=== PATIENT | female | born 1950 | race Caucasian/White ===

== ENCOUNTER → 2022-11-02 07:12 | Outpatient (CLI) | payer MEDICARE, OTHER, SELFPAY ==
[2022-11-02 07:46] LABS: Add Manual Diff / Slide Review NO; Basophils Absolute Auto 0 /uL (0-100); Basophils Percent Auto 0.8 % (0-2); Eosinophils Absolute Auto 200 /uL (0-450); Eosinophils Percent Auto 3.3 % (2-4); Hemoglobin 11.3 g/dL (12.0-16.0); Lymphocytes Absolute Auto 3000 /uL (1100-4500); Lymphocytes Percent Auto 53.3 % (25-40); Mean Corpuscular HGB Conc 34.1 % (30-36); Mean Corpuscular Hemoglobin 31.4 PG (26-34); Mean Corpuscular Volume 92.1 fL (80-100); Monocytes Absolute Auto 400 /uL (0-900); Monocytes Percent Auto 7.3 % (3-14); Neutrophils Absolute Auto 2000 /uL (1500-7000); Neutrophils Percent Auto 35.3 % (50-75); Platelet Count 215 X10^3/uL (150-400); Red Blood Cell Count 3.58 X10^6/uL (4.0-5.2); Red Cell Distribution Width 13.6 % (11.6-14.8); White Blood Cell Count 5.6 X10^3/uL (4.5-11.0)
[2022-11-02 08:09] LABS: Alanine Aminotransferase 23 IU/L (<35); Albumin 4.3 g/dL (3.5-5.0); Albumin Globulin Ratio 1.7 (1.0-2.8); Alkaline Phosphatase 50 U/L (38-126); Aspartate Aminotransferase 23 IU/L (14-36); BUN Creatinine Ratio 17.4 (6-22); Bilirubin Total 0.3 mg/dL (0.2-1.3); Blood Urea Nitrogen 20 mg/dL (7-17); Calcium 9.2 mg/dL (8.4-10.2); Carbon Dioxide 25 mmol/L (22-32); Chloride 99 mmol/L (98-107); Cholesterol 208 mg/dL (140-199); Estimated Glomerular Filt Rate 50 mL/min (>60); Globulin 2.6 g/dL (1.7-4.1); Glucose 95 mg/dL (80-110); HDL Cholesterol 62 mg/dL (40-60); HEMOLYSIS < 15 (0-50); LDL Cholesterol Calculated 100 mg/dL (<100); Phosphorous 3.5 mg/dL (2.8-4.1); Potassium 4.3 mmol/L (3.4-5.1); Sodium 133 mmol/L (137-145); Total Protein 6.9 g/dL (6.3-8.2); Triglycerides 232 mg/dL (35-150); Uric Acid 5.9 mg/dL (2.5-6.2)
[2022-11-02 08:15] LABS: Vitamin D 25 Hydroxy (D3) 67.2 ng/mL (30.0-100.0)
[2022-11-02 16:12] LABS: Protein (Total) Urine Random 12 mg/dL (0-12); Protein Creatinine Ratio Urine 0.35 GRAM/24H
[2022-11-04 07:45] LABS: Parathyroid Hormone Int 70 pg/mL (15-65)
== END ==
PROVIDERS: Referring Provider Internal Medicine Nephrology; Visit Provider Internal Medicine Nephrology
DX: N18.32 Chronic kidney disease, stage 3b (principal); I10 Essential (primary) hypertension; E55.9 Vitamin D deficiency, unspecified; R73.9 Hyperglycemia, unspecified; E78.5 Hyperlipidemia, unspecified
CPT/HCPCS: 36415; 80053; 80061; 82306; 82570; 83970; 84100; 84156; 84550; 85025

== ENCOUNTER → 2023-10-24 09:45 | Outpatient (CLI) | payer MEDICARE, OTHER, SELFPAY ==
[2023-10-24 11:33] LABS: Cholesterol 224 mg/dL (140-199); HDL Cholesterol 56 mg/dL (40-60); LDL Cholesterol Calculated 94 mg/dL (<100); Triglycerides 371 mg/dL (35-150)
== END ==
LOC: LAB 09:47
PROVIDERS: PCP Nurse Practitioner Family; Referring Provider Nurse Practitioner Family; Visit Provider Nurse Practitioner Family
DX: E78.5 Hyperlipidemia, unspecified (principal)
CPT/HCPCS: 36415; 80061

== ENCOUNTER → 2024-04-08 12:13 | Outpatient (CLI) | payer MEDICARE, OTHER, SELFPAY ==
[2024-04-08 12:57] LABS: Add Manual Diff / Slide Review NO; Basophils Absolute Auto 0 /uL (0-100); Basophils Percent Auto 0.4 % (0-2); Eosinophils Absolute Auto 200 /uL (0-450); Eosinophils Percent Auto 2.8 % (2-4); Hemoglobin 12.3 g/dL (12.0-16.0); Lymphocytes Absolute Auto 2200 /uL (1100-4500); Lymphocytes Percent Auto 40.4 % (25-40); Mean Corpuscular HGB Conc 33.3 % (30-36); Mean Corpuscular Hemoglobin 30.4 PG (26-34); Mean Corpuscular Volume 91.2 fL (80-100); Monocytes Absolute Auto 400 /uL (0-900); Monocytes Percent Auto 7.8 % (3-14); Neutrophils Absolute Auto 2700 /uL (1500-7000); Neutrophils Percent Auto 48.6 % (50-75); Platelet Count 244 X10^3/uL (150-400); Red Blood Cell Count 4.06 X10^6/uL (4.0-5.2); Red Cell Distribution Width 13.8 % (11.6-14.8); White Blood Cell Count 5.6 X10^3/uL (4.5-11.0)
[2024-04-08 13:10] LABS: Hemoglobin A1C% w Est Avg Glu 5.5 % (4.0-6.0)
[2024-04-08 13:16] LABS: Alanine Aminotransferase 20 IU/L (<35); Albumin 4.7 g/dL (3.5-5.0); Albumin Globulin Ratio 1.7 (1.0-2.8); Alkaline Phosphatase 56 U/L (38-126); Aspartate Aminotransferase 25 IU/L (14-36); BUN Creatinine Ratio 22.3 (6-22); Bilirubin Total 0.6 mg/dL (0.2-1.3); Blood Urea Nitrogen 27 mg/dL (7-17); Calcium 9.7 mg/dL (8.4-10.2); Carbon Dioxide 23 mmol/L (22-32); Chloride 102 mmol/L (98-107); Estimated Glomerular Filt Rate 47 mL/min (>60); Globulin 2.8 g/dL (1.7-4.1); Glucose 89 mg/dL (80-110); HEMOLYSIS < 15 (0-50); Phosphorous 4.1 mg/dL (2.8-4.1); Potassium 4.7 mmol/L (3.4-5.1); Sodium 134 mmol/L (137-145); Total Protein 7.5 g/dL (6.3-8.2); Uric Acid 6.4 mg/dL (2.5-6.2)
[2024-04-08 15:42] LABS: Creatinine Urine Random 23.02 mg/dL; Protein (Total) Urine Random 12 mg/dL (0-12); Protein Creatinine Ratio Urine 0.52 GRAM/24H
[2024-04-08 15:54] LABS: Vitamin D 25 Hydroxy (D3) 61.4 ng/mL (30.0-100.0)
[2024-04-10 11:42] LABS: Parathyroid Hormone Int 44 pg/mL (15-65)
== END ==
PROVIDERS: PCP Nurse Practitioner Family; Referring Provider Internal Medicine Nephrology; Visit Provider Internal Medicine Nephrology
DX: E55.9 Vitamin D deficiency, unspecified (principal); R73.9 Hyperglycemia, unspecified; E78.5 Hyperlipidemia, unspecified; N18.32 Chronic kidney disease, stage 3b; I12.9 Hypertensive chronic kidney disease with stage 1 through stage 4 chronic kidney disease, or unspecified chronic kidney disease
CPT/HCPCS: 36415; 80053; 82306; 82570; 83036; 83970; 84100; 84156; 84550; 85025

== ENCOUNTER → 2024-05-13 07:54 | Outpatient (CLI) | payer MEDICARE, OTHER, SELFPAY ==
[2024-05-13 11:12] LABS: Cholesterol 195 mg/dL (140-199); HDL Cholesterol 59 mg/dL (40-60); LDL Cholesterol Calculated 91 mg/dL (<100); Triglycerides 223 mg/dL (35-150)
== END ==
PROVIDERS: PCP Nurse Practitioner Family; Referring Provider Nurse Practitioner Family; Visit Provider Nurse Practitioner Family
DX: E78.5 Hyperlipidemia, unspecified (principal)
CPT/HCPCS: 36415; 80061

== ENCOUNTER → 2024-05-22 07:36 | Outpatient (CLI) | payer MEDICARE, OTHER, SELFPAY ==
--- NOTE | 2024-05-22 | DI.MG.S_ITS ---
UNILATERAL RIGHT DIGITAL SCREENING MAMMOGRAM 3D/2D WITH CAD: 05/22/2024 CLINICAL: Routine screening. Personal history of left breast cancer. Comparison is made to exams dated: 05/16/2023 mammogram, 04/11/2022 mammogram, 03/24/2021 mammogram, 03/08/2020 mammogram, 02/24/2019 mammogram, and 02/11/2018 mammogram - [facility]. The breasts are almost entirely fatty (category a/<25% glandular tissue). Current study was also evaluated with a Computer Aided Detection (CAD) system. There are benign post operative findings in the right breast. No significant masses, calcifications, or other findings are seen in the breast. There has been no significant interval change. IMPRESSION: BENIGN There is no mammographic evidence of malignancy. A 1 year screening mammogram is recommended. This exam was interpreted at Station ID: [id number]. NOTE: For mammograms, a report in lay terms will be sent to the patient. Approximately 15% of breast malignancies will not be visualized mammographically. In the management of a palpable breast mass, a negative mammogram must not discourage biopsy of a clinically suspicious lesion. Electronically Signed By: Rosalia Lopez M.D., Ph.D. eduardo/[email or web address]:05/25/2024 04:56:09 letter sent: Normal Exam ACR BI-RADS Category 2: Benign
== END ==
PROVIDERS: PCP Nurse Practitioner Family; Referring Provider Nurse Practitioner Family; Visit Provider Nurse Practitioner Family
DX: Z12.31 Encounter for screening mammogram for malignant neoplasm of breast (principal); Z85.3 Personal history of malignant neoplasm of breast; R92.313 Mammographic fatty tissue density, bilateral breasts
CPT/HCPCS: 77063; 77067

== ENCOUNTER 2024-07-28 07:30 | Outpatient (RCR) | payer MEDICARE, OTHER, SELFPAY ==
--- NOTE | 2024-06-15 18:27 | PT.OIE ---
Current Diagnoses Plantar fascial fibromatosis (06/15/24) Past Medical History (Last Updated 05/15/24 @ 14:01 [facility] Chronic kidney disease (CKD) History of breast cancer History of gastric ulcer Hyperlipidemia Hypertension Visit Care Team Role Provider Type RAYSHAWN Mtz Attending Provider Advanced Cuff Setter Family Provider Primary Care Provider Referring Provider Specialty: Family Practice Address: [address] [place] [address], [id number] Phone: Fax: Email: [email or web address] Physical Therapy Initial Evaluation PT-OP-A Visit Information Start: 06/04/24 16:12 Freq: Status: Active Protocol: Document 06/15/24 07:33 LRN (Rec: 06/15/24 08:51 LRN [id number]) Out-Patient Physical Therapy Visit Information Visit Information Visit Type Initial Evaluation Visit Start Time 07:35 Visit Stop Time 08:21 Visit Number 1 Evaluation Information Evaluation Date 06/15/24 Precautions Precautions Hx of breast cancer, jt replacements: R shoulder & hip . Cortisone injection in medial R heel - 06/10/24, R ankle sprain pre-covid. PT-OP-B Current Condition Start: 06/04/24 16:12 Freq: Status: Active Protocol: Document 06/15/24 07:33 LRN (Rec: 06/15/24 08:51 LRN [id number]) Current Condition History of Current Condition Onset Date 1 month ago Current Complaints Hasn't returned to walking since cortisone shot, medial R heel irritation History of Current Condition Pt reports in mid April 2024, R foot started bothering her. After walking on heeled shoe after 6 hrs the heel and top of foot starting hurting. [place] and barely walk afterwards. Hasn't been walking. Now able to walk 45' to shop (after cortisone injection). Was told with the R AIME one leg was longer but corrected it. Prior Treatments and Tests Cortisone injection last sat. Developmental History Developmental History Moved to [place] 2 yrs ago. 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 PMH: R TSA (ball & angela) 2011, L mastectomy (2017), R breast reduction and L reconstruction 2018, carpal tunnel, Treatment Goals Patient/Caregiver Goals Pt goal Get back to walking for exercise ([employer] and [employer]). WAnts to go skiing in end of Jun. 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 PT-OP-C Subjective Start: 06/04/24 16:12 Freq: Status: Active Protocol: Document 06/15/24 07:33 LRN (Rec: 06/15/24 08:51 LRN [id number]) Patient Questionnaires Lower Extremity Functional Scale LEFS Score 53 LEFS Impairment 20 to 39% Impaired (Score 48- 62) OP-PT Pain Assessment Pain Assessment Grid Paper Pain Assessment Grid Completed Yes Location R foot Pain Location Details R heel Intensity 4 Scale Used Numeric (0 - 10) Description Aching Description- Other Annoying Frequency When on feet a lot PT-OP-G Mobility & Gait Start: 06/04/24 16:12 Freq: Status: Active Protocol: Document 06/15/24 07:33 LRN (Rec: 06/15/24 08:51 LRN [id number]) OP Gait Assessment Gait Gait Assistance Required: Independent Comments Gait Comments Heavy landing on L side, flat foot on toe off. PT-OP-H Neuro Start: 06/04/24 16:12 Freq: Status: Active Protocol: Document 06/15/24 07:33 LRN (Rec: 06/15/24 08:51 LRN [id number]) Sensation Evaluation Gross Sensation Gross Sensation WNL PT-OP-J Posture/Palpation/Skin Start: 06/04/24 16:12 Freq: Status: Active Protocol: Document 06/15/24 07:33 LRN (Rec: 06/15/24 08:51 LRN [id number]) Posture Evaluation Position Standing Hip Posture (L) Externally Rotated,(R) Externally Rotated Knee Posture (L) Genu Valgus Foot Arch (R) Medium Arch,(L) No Arch Comments Posture Comments Head shifted R, Bunion R. Dowagers hump, flat Low back, very mild C-curvew/apex on L1- ,L2. Mild valgus R heel, mod valgus L heel. Palpation Assessment Location R foot Palpation Location Talocalcanealnavicular, cuneonavicular jt Palpation Details Dec'd mob: Talocalcanealnavicular- anterior and cuneonavicular - PA. EV of calcaneous. PT-OP-K Range of Motion Start: 06/04/24 16:12 Freq: Status: Active Protocol: Document 06/15/24 07:33 LRN (Rec: 06/15/24 08:51 LRN [id number]) Ankle and Foot Goniometric Range of Motion Ankle and Foot Right Active Testing Position Supine Comments AROMDF-PF 7-44, EV-IV 20-42 Left Active Testing Position Supine Comments Decr'd ankle DF. AROM: DF-PF 4-70, EV-IV 24-44 PT-OP-M Strength Start: 06/04/24 16:12 Freq: Status: Active Protocol: Document 06/15/24 07:33 LRN (Rec: 06/15/24 08:51 LRN [id number]) Knee Strength Knee Manual Muscle Testing Right Comments Strength is 5/5 Left Comments Strength is 5/5 Ankle/Foot Strength Ankle and Foot Manual Muscle Testing Right Comments Strength is 5/5 Left Comments Strength is 5/5 PT-OP-Q Treatments Start: 06/04/24 16:12 Freq: Status: Active Protocol: Document 06/15/24 07:33 LRN (Rec: 06/15/24 08:51 LRN [id number]) Self-Care/Home Management Treatment Education Other Education Discussed results of evaluation, goals, treatment, and plan of care (POC) with pt , attendance/cx/dns policy; pt agreeable to evaluation, goals, treatment, attendance/ cx/dns policy and POC. Activities Self-Care/Home Management Activities Issued & reviewed HEP: Short foot flexion strengthening, standing gastroc & soleus stretch. PT-OP-T Assessment and Plan Start: 06/04/24 16:12 Freq: Status: Active Protocol: Document 06/15/24 07:33 LRN (Rec: 06/15/24 08:51 LRN [id number]) Physical Therapy Assessment Rehab Potential Rehabilitation Potential Good Evaluation Complexity Number of Personal Factors/Comorbidities 3 or More Number of Body Systems Impaired 1-2 Clinical Presentation at Evaluation Evolving Impairments Impairments Activity Tolerance,Balance, Gait,Pain,ROM,Soft Tissue Mobility,Strength,Transfers Goals Three Impairment Decreased R ankle ROM and jt mobility Short Term Goal (STG) Pt will demonstrate normalized mobility of R Talocalcanealnavicular ( anterior mob) and cuneonavicular (PA mob), and calcaneal EV. 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 LTG Duration 08/13/24 Two Impairment Decreased walking tolerance Short Term Goal (STG) Pt will be able to tolerate gait on stairs and single leg balance exer on the R foot. STG Duration 07/17/24 Group Home Goal (LTG) Pt will be able to get back to walking for exercise on the double[employer]ist or [employer] . LTG Duration 08/13/24 One Impairment Pt lacks appropropriate self care HEP. Short Term Goal (STG) Pt will be started on program to work towards skiing by end jun, to include: education in different home modalities for pain management (ice, heat , elevation, nighttime splint) . STG Duration 07/17/24 Group Home Goal (LTG) Pt will be educated in a self care HEP of R ankle ROM & strengthening, and balance ex' s. LTG Duration 08/13/24 Assessment Summary Assessment Pt is a 74 yo female who presents with R heel pain from resolving plantar fasciitis after cortisone injection. Pt is having 4/10 heel pain with walking and discomfort with palpation in referred area for plantar fascial pain. The pt demonstrates postural changes in the L LE that may be creating a dysfunctional gait, putting extra stress on her R LE. Her R ankle and joint mobility is limited with DF, IV, EV. The pt will benefit from skilled physical therapy to improve her R ankle mobility, be educated in footwear for plantar support bilaterally, improve gait and return her to prior level of exercise walking tolerance, manual therapy to improve soft tissue & jt mobility and education in HEP & use of modalities for pain management . Physical Therapy Plan Frequency and Duration Frequency of Treatment 2x/Week Duration of treatment (weeks) 8 Plan of Care Start Date 06/15/24 Plan of Care End Date 08/13/24 Therapeutic Interventions Therapeutic Interventions Balance Training,Gait Training ,Home Exercise Program,Joint Mobilizations,Manual Therapy, Neuromuscular Re-education, Self-Care/Home Management,Soft Tissue Mobilization,Taping, Therapeutic Activities, Therapeutic Exercises Modalities Cold Pack/Ice Massage, Ultrasound Next Visit Focus/Plan Next Note Type Treatment Note Next Visit Plan Plantar fasciitis rehab post cortisone injection. Next: Assess SLS & R ankle PROM and review issued HEP. Start R ankle/toes ROM, foot long and short foot flexor & knee strengthening (check knee ROM), gait/stair/transfer/ balance training, manual therapy (STM-plantar fascia/ JMT-ankle), Pt Education (HEP, Edema and pain mgmt).
--- NOTE | 2024-06-15 18:28 | PT.OPPOC ---
Physical, Occupational & Speech Therapy At [facility] Current Diagnoses Plantar fascial fibromatosis (06/15/24) Visit Care Team Role Provider Type RAYSHAWN Mtz Attending Provider Advanced Shuttleless Loom Weaver Family Provider Primary Care Provider Referring Provider Specialty: Family Practice Address: [address] [place] [address], [address] Phone: Fax: Email: [email or web address] Plan Of Care PT-OP-B Current Condition Start: 06/04/24 16:12 Freq: Status: Active Protocol: Document 06/15/24 07:33 LRN (Rec: 06/15/24 08:51 LRN [id number]) Current Condition History of Current Condition Onset Date 1 month ago Current Complaints Hasn't returned to walking since cortisone shot, medial R heel irritation History of Current Condition Pt reports in mid April 2024, R foot started bothering her. After walking on heeled shoe after 6 hrs the heel and top of foot starting hurting. She did her normal walk back from doing the [place] trail and barely walk afterwards. Hasn't been walking. Now able to walk 45' to shop (after cortisone injection). Was told with the R AIME one leg was longer but corrected it. Prior Treatments and Tests Cortisone injection last sat. Developmental History Developmental History Moved to [place] 2 yrs ago. 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 PMH: R TSA (ball & angela) 2011, L mastectomy (2017), R breast reduction and L reconstruction 2018, carpal tunnel, Treatment Goals Patient/Caregiver Goals Pt goal Get back to walking for exercise ([employer] [place] and [employer]). WAnts to go skiing in end of Jun. 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 PT-OP-T Assessment and Plan Start: 06/04/24 16:12 Freq: Status: Active Protocol: Document 06/15/24 07:33 LRN (Rec: 06/15/24 08:51 LRN [id number]) Physical Therapy Assessment Rehab Potential Rehabilitation Potential Good Evaluation Complexity Number of Personal Factors/Comorbidities 3 or More Number of Body Systems Impaired 1-2 Clinical Presentation at Evaluation Evolving Impairments Impairments Activity Tolerance,Balance, Gait,Pain,ROM,Soft Tissue Mobility,Strength,Transfers Goals Three Impairment Decreased R ankle ROM and jt mobility Short Term Goal (STG) Pt will demonstrate normalized mobility of R Talocalcanealnavicular ( anterior mob) and cuneonavicular (PA mob), and calcaneal EV. STG Duration 07/17/24 Halfway Goal (LTG) Pt will demonstarted improved R ankle mobility for DF, EV, IV. LTG Duration 08/13/24 Two Impairment Decreased walking tolerance Short Term Goal (STG) Pt will be able to tolerate gait on stairs and single leg balance exer on the R foot. STG Duration 07/17/24 Paper Machine Back Tender Goal (LTG) Pt will be able to get back to walking for exercise on the [employer] or [employer] [place] . LTG Duration 08/13/24 One Impairment Pt lacks appropropriate self care HEP. Short Term Goal (STG) Pt will be started on program to work towards skiing by end of Jun, to include: education in different home modalities for pain management (ice, heat , elevation, nighttime splint) . STG Duration 07/17/24 Paper Machine Back Tender Goal (LTG) Pt will be educated in a self care HEP of R ankle ROM & strengthening, and balance ex' s. LTG Duration 08/13/24 Assessment Summary Assessment Pt is a 74 yo female who presents with R heel pain from resolving plantar fasciitis after cortisone injection. Pt is having 4/10 heel pain with walking and discomfort with palpation in referred area for plantar fascial pain. The pt demonstrates postural changes in the L LE that may be creating a dysfunctional gait, putting extra stress on her R LE. Her R ankle and joint mobility is limited with DF, IV, EV. The pt will benefit from skilled physical therapy to improve her R ankle mobility, be educated in footwear for plantar support bilaterally, improve gait and return her to prior level of exercise walking tolerance, manual therapy to improve soft tissue & jt mobility and education in HEP & use of modalities for pain management . Physical Therapy Plan Frequency and Duration Frequency of Treatment 2x/Week Duration of treatment (weeks) 8 Plan of Care Start Date 06/15/24 Plan of Care End Date 08/13/24 Therapeutic Interventions Therapeutic Interventions Balance Training,Gait Training ,Home Exercise Program,Joint Mobilizations,Manual Therapy, Neuromuscular Re-education, Self-Care/Home Management,Soft Tissue Mobilization,Taping, Therapeutic Activities, Therapeutic Exercises Modalities Cold Pack/Ice Massage, Ultrasound Next Visit Focus/Plan Next Note Type Treatment Note Next Visit Plan Plantar fasciitis rehab post cortisone injection. Next: Assess SLS & R ankle PROM and review issued HEP. Start R ankle/toes ROM, foot long and short foot flexor & knee strengthening (check knee ROM), gait/stair/transfer/ balance training, manual therapy (STM-plantar fascia/ JMT-ankle), Pt Education (HEP, Edema and pain mgmt). Plan of Care Dates Plan of Care Start Date 06/15/24 Plan of Care End Date 08/13/24 Electronically Signed by: Hazel Ludwig, PT 06/16/24 [id number] If you are in agreement with this Plan of Care, please return a signed and dated copy. I have reviewed this Plan of Care and certify that the skilled therapy services above are required to meet the patient?s needs. Physician Signature Date Printed Name and Credentials Clinical Instructor Signature Printed Name and Credentials
--- NOTE | 2024-06-18 17:04 | PT.OTN ---
Current Diagnoses Plantar fascial fibromatosis (06/18/24) Physical Therapy Treatment Note PT-OP-A Visit Information Start: 06/04/24 16:12 Freq: Status: Active Protocol: Document 06/18/24 13:52 LRN (Rec: 06/18/24 14:37 LRN [id number]) Out-Patient Physical Therapy Visit Information Visit Information Visit Type Treatment Note Visit Start Time 13:52 Visit Stop Time 14:32 Visit Number 2 Evaluation Information Evaluation Date 06/15/24 Precautions Precautions Hx of breast cancer, jt replacements: R shoulder & hip . Cortisone injection in medial R heel - 06/10/24, R ankle sprain pre-covid. PT-OP-B Current Condition Start: 06/04/24 16:12 Freq: Status: Active Protocol: Document 06/15/24 07:33 LRN (Rec: 06/15/24 08:51 LRN [id number]) Current Condition History of Current Condition Onset Date 1 month ago Current Complaints Hasn't returned to walking since cortisone shot, medial R heel irritation History of Current Condition Pt reports in mid April 2024, R foot started bothering her. After walking on heeled shoe after 6 hrs the heel and top of foot starting hurting. She did her normal walk back from doing the [employer] trail and barely walk afterwards. Hasn't been walking. Now able to walk 45' to shop (after cortisone injection). Was told with the R AIME one leg was longer but corrected it. Prior Treatments and Tests Cortisone injection last sat. Developmental History Developmental History Moved to [place] 2 yrs ago. 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 PMH: R TSA (ball & angela) 2011, L mastectomy (2017), R breast reduction and L reconstruction 2018, carpal tunnel, Treatment Goals Patient/Caregiver Goals Pt goal Get back to walking for exercise ([employer] and [email or web address] [place]). WAnts to go skiing in end of Jun. 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 PT-OP-C Subjective Start: 06/04/24 16:12 Freq: Status: Active Protocol: Document 06/18/24 13:52 LRN (Rec: 06/18/24 14:37 LRN [id number]) OP-PT Subjective Patient Comments Patient Comments States Dr. Ana Mercado gave her a cortisone injection and would like to stay informed by PT to help her decide if another injection is needed. States she hasn't been doing much. PT-OP-G Mobility & Gait Start: 06/04/24 16:12 Freq: Status: Active Protocol: Document 06/15/24 07:33 LRN (Rec: 06/15/24 08:51 LRN [id number]) OP Gait Assessment Gait Gait Assistance Required: Independent Comments Gait Comments Heavy landing on L side, flat foot on toe off. PT-OP-H Neuro Start: 06/04/24 16:12 Freq: Status: Active Protocol: Document 06/15/24 07:33 LRN (Rec: 06/15/24 08:51 LRN [id number]) Sensation Evaluation Gross Sensation Gross Sensation WNL PT-OP-J Posture/Palpation/Skin Start: 06/04/24 16:12 Freq: Status: Active Protocol: Document 06/15/24 07:33 LRN (Rec: 06/15/24 08:51 LRN [id number]) Posture Evaluation Position Standing Hip Posture (L) Externally Rotated,(R) Externally Rotated Knee Posture (L) Genu Valgus Foot Arch (R) Medium Arch,(L) No Arch Comments Posture Comments Head shifted R, Bunion R. Dowagers hump, flat Low back, very mild C-curvew/apex on L1- ,L2. Mild valgus R heel, mod valgus L heel. Palpation Assessment Location R foot Palpation Location Talocalcanealnavicular, cuneonavicular jt Palpation Details Dec'd mob: Talocalcanealnavicular- anterior and cuneonavicular - PA. EV of calcaneous. PT-OP-K Range of Motion Start: 06/04/24 16:12 Freq: Status: Active Protocol: Document 06/15/24 07:33 LRN (Rec: 06/15/24 08:51 LRN [id number]) Ankle and Foot Goniometric Range of Motion Ankle and Foot Right Active Testing Position Supine Comments AROMDF-PF 7-44, EV-IV 20-42 Left Active Testing Position Supine Comments Decr'd ankle DF. AROM: DF-PF 4-70, EV-IV 24-44 PT-OP-M Strength Start: 06/04/24 16:12 Freq: Status: Active Protocol: Document 06/15/24 07:33 LRN (Rec: 06/15/24 08:51 LRN [id number]) Knee Strength Knee Manual Muscle Testing Right Comments Strength is 5/5 Left Comments Strength is 5/5 Ankle/Foot Strength Ankle and Foot Manual Muscle Testing Right Comments Strength is 5/5 Left Comments Strength is 5/5 PT-OP-Q Treatments Start: 06/04/24 16:12 Freq: Status: Active Protocol: Document 06/18/24 13:52 LRN (Rec: 06/18/24 14:37 LRN [id number]) Therapeutic Exercises Sitting Exercises Long plantar flexion Sitting Exercise Name Emerita hold Side right Reps/Minutes 6' Comments Much phy cuing and some v cuing given Short plantar flexion Sitting Exercise Name Emerita hold Side right Reps/Minutes 4' Comments Much phy cuing and some v cuing given Standing Exercises Soleus stretch Side bilateral Reps/Minutes 10 SH x 10 Gastroc stretch Side bilateral Reps/Minutes 10 SH x 10 Gait Training Gait Activity Walking mechanics training Description Wgt shifting of L hip with stance phase and during R toe off Device Used Railing, and full length mirror, Hoka shoes. Surface Level Distance/Duration 20' Treatment Focus Normal gait mechanics with upright posture. Self-Care/Home Management Treatment Education Other Education Pt lead discussion on shoewear and arch support, at pt request. Examined shoes and recommend not her Merril's due to lack of arch support. Hoka's were found to have good plantar fascia support and kept Calcaneous in neutral with slight IV present after standing for a minute. PT-OP-T Assessment and Plan Start: 06/04/24 16:12 Freq: Status: Active Protocol: Document 06/18/24 13:52 LRN (Rec: 06/18/24 14:37 LRN [id number]) Physical Therapy Assessment Goals Three Impairment Decreased R ankle ROM and jt mobility Short Term Goal (STG) Pt will demonstrate normalized mobility of R Talocalcanealnavicular ( anterior mob) and cuneonavicular (PA mob), and calcaneal EV. STG Duration 07/17/24 Penitentiary Goal (LTG) Pt will demonstarted improved R ankle mobility for DF, EV, IV. LTG Duration 08/13/24 Two Impairment Decreased walking tolerance Short Term Goal (STG) Pt will be able to tolerate gait on stairs and single leg balance exer on the R foot. STG Duration 07/17/24 Senior Scrum Master Goal (LTG) Pt will be able to get back to walking for exercise on the [employer] or [email or web address] [place] . LTG Duration 08/13/24 One Impairment Pt lacks appropropriate self care HEP. Short Term Goal (STG) Pt will be started on program to work towards skiing by end of Jun, to include: education in different home modalities for pain management (ice, heat , elevation, nighttime splint) . STG Duration 07/17/24 Senior Scrum Master Goal (LTG) Pt will be educated in a self care HEP of R ankle ROM & strengthening, and balance ex' s. LTG Duration 08/13/24 Assessment Summary Assessment 74 yo female s/p cortisone injection in R foot for plantar fasciitis pain. Today pt reports no R foot pain when wearing [place] shoes , but has onset of pain with [place] shoes that she wore into therapy. Pt shows best calcaneal positioning in standing (L foot) with use of her [employer]oka tennis shoes. The pt gait was L leaning and no hip shift left during stance phase to start, but with her Hoka's and gait training pt was able to demonstrate a more normal gait, only slight ER of L foot throughout the gait. No short foot flexor strength noted (no palpable contraction) and weak long foot flexors (trace). Further training/strengthening needed . Physical Therapy Plan Frequency and Duration Frequency of Treatment 2x/Week Duration of treatment (weeks) 8 Plan of Care Start Date 06/15/24 Plan of Care End Date 08/13/24 Next Visit Focus/Plan Next Note Type Treatment Note Next Visit Plan Plantar fasciitis rehab post cortisone injection. Next: Assess SLS & R ankle PROM and review issued HEP. Start R ankle/toes ROM, foot long and short foot flexor & knee strengthening (check knee ROM), gait/stair/transfer/ balance training, manual therapy (JMT-ankle/STM-plantar fascia), Pt Education (HEP, Edema and pain mgmt).
--- NOTE | 2024-06-24 15:36 | PT.OTN ---
Current Diagnoses Plantar fascial fibromatosis (06/24/24) Physical Therapy Treatment Note PT-OP-A Visit Information Start: 06/04/24 16:12 Freq: Status: Active Protocol: Document 06/24/24 12:53 AB (Rec: 06/24/24 15:36 AB [id number]) Out-Patient Physical Therapy Visit Information Visit Information Visit Type Treatment Note Visit Start Time 14:36 Visit Stop Time 15:22 Visit Number 3 Number of PAVILION CUTTER Visits 1 Evaluation Information Evaluation Date 06/15/24 Precautions Precautions Hx of breast cancer, jt replacements: R shoulder & hip . Cortisone injection in medial R heel - 06/10/24, R ankle sprain pre-covid. PT-OP-B Current Condition Start: 06/04/24 16:12 Freq: Status: Active Protocol: Document 06/15/24 07:33 LRN (Rec: 06/15/24 08:51 LRN [id number]) Current Condition History of Current Condition Onset Date 1 month ago Current Complaints Hasn't returned to walking since cortisone shot, medial R heel irritation History of Current Condition Pt reports in mid April 2024, R foot started bothering her. After walking on heeled shoe after 6 hrs the heel and top of foot starting hurting. She did her normal walk back from doing the [employer] trail and barely walk afterwards. Hasn't been walking. Now able to walk 45' to shop (after cortisone injection). Was told with the R AIME one leg was longer but corrected it. Prior Treatments and Tests Cortisone injection last sat. Developmental History Developmental History Moved to [place] 2 yrs ago. 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 Retired since 2010 with reported physical injuries/ surgeries after snf. PMH: R TSA (ball & angela) 2011, L mastectomy (2017), R breast reduction and L reconstruction 2018, carpal tunnel, Treatment Goals Patient/Caregiver Goals Pt goal Get back to walking for exercise ([employer] and [employer] [place]). WAnts to go skiing in end of Jun. 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 PT-OP-C Subjective Start: 06/04/24 16:12 Freq: Status: Active Protocol: Document 06/24/24 12:53 AB (Rec: 06/24/24 15:36 AB [id number]) OP-PT Subjective Patient Comments Patient Comments Ana reports she does not have pain when she gets up in the morning, the pain increases the more she walks. Patient reports she is up to 20 min without her pain increasing. Patient rates pain 1/ distal achilles PT-OP-G Mobility & Gait Start: 06/04/24 16:12 Freq: Status: Active Protocol: Document 06/15/24 07:33 LRN (Rec: 06/15/24 08:51 LRN [id number]) OP Gait Assessment Gait Gait Assistance Required: Independent Comments Gait Comments Heavy landing on L side, flat foot on toe off. PT-OP-H Neuro Start: 06/04/24 16:12 Freq: Status: Active Protocol: Document 06/15/24 07:33 LRN (Rec: 06/15/24 08:51 LRN [id number]) Sensation Evaluation Gross Sensation Gross Sensation WNL PT-OP-J Posture/Palpation/Skin Start: 06/04/24 16:12 Freq: Status: Active Protocol: Document 06/15/24 07:33 LRN (Rec: 06/15/24 08:51 LRN [id number]) Posture Evaluation Position Standing Hip Posture (L) Externally Rotated,(R) Externally Rotated Knee Posture (L) Genu Valgus Foot Arch (R) Medium Arch,(L) No Arch Comments Posture Comments Head shifted R, Bunion R. Dowagers hump, flat Low back, very mild C-curvew/apex on L1- ,L2. Mild valgus R heel, mod valgus L heel. Palpation Assessment Location R foot Palpation Location Talocalcanealnavicular, cuneonavicular jt Palpation Details Dec'd mob: Talocalcanealnavicular- anterior and cuneonavicular - PA. EV of calcaneous. PT-OP-K Range of Motion Start: 06/04/24 16:12 Freq: Status: Active Protocol: Document 06/15/24 07:33 LRN (Rec: 06/15/24 08:51 LRN [id number]) Ankle and Foot Goniometric Range of Motion Ankle and Foot Right Active Testing Position Supine Comments AROMDF-PF 7-44, EV-IV 20-42 Left Active Testing Position Supine Comments Decr'd ankle DF. AROM: DF-PF 4-70, EV-IV 24-44 PT-OP-M Strength Start: 06/04/24 16:12 Freq: Status: Active Protocol: Document 06/15/24 07:33 LRN (Rec: 06/15/24 08:51 LRN [id number]) Knee Strength Knee Manual Muscle Testing Right Comments Strength is 5/5 Left Comments Strength is 5/5 Ankle/Foot Strength Ankle and Foot Manual Muscle Testing Right Comments Strength is 5/5 Left Comments Strength is 5/5 PT-OP-Q Treatments Start: 06/04/24 16:12 Freq: Status: Active Protocol: Document 06/24/24 12:53 AB (Rec: 06/24/24 15:36 AB [id number]) Therapeutic Exercises Sitting Exercises seated hip abd with band Sitting Exercise Name HEP Resistance level 4 band latex free Reps/Minutes one min X 1 Comments verbal cues seated DF Sitting Exercise Name HEP Side bilateral Resistance level one band Reps/Minutes X15 w/o band X15 with book Comments verbal cues Standing Exercises sit to stand Standing Exercise Name for body over ankle mvt post manual and stretches Side bilateral Reps/Minutes X10 Comments verbal cues for hip hinge Soleus stretch Side bilateral Reps/Minutes 30 sec X 3 Gastroc stretch Side bilateral Reps/Minutes 30 sec X 3 Manual Therapy Treatment Consent Patient gave verbal consent for manual Yes treatment Soft Tissue Mobilization R calf and plantar surface of foot Mobilization Type Cross-Friction,Rolling Intensity/Depth Moderate Body Position Hooklying Joint Mobilizations right ankle Joint Talocalcanealnavicular, distal tib/fb, talocrural Direction ant, ap and pa, ap Grade II Body Position Hooklying Reps/Duration X10 X 3 PT-OP-T Assessment and Plan Start: 06/04/24 16:12 Freq: Status: Active Protocol: Document 06/24/24 12:53 AB (Rec: 06/24/24 15:36 AB [id number]) Physical Therapy Assessment Goals Three Impairment Decreased R ankle ROM and jt mobility Short Term Goal (STG) Pt will demonstrate normalized mobility of R Talocalcanealnavicular ( anterior mob) and cuneonavicular (PA mob), and calcaneal EV. 06/24/2024 Great toe 5.5 cm from wall with knee to wall PROM body over ankle DF right LE =16.6 deg STG Duration 07/17/24 Wastewater Analyst Lab Analyst Goal (LTG) Pt will demonstarted improved R ankle mobility for DF, EV, IV. LTG Duration 08/13/24 Two Impairment Decreased walking tolerance Short Term Goal (STG) Pt will be able to tolerate gait on stairs and single leg balance exer on the R foot. 06/24/2024 SLS right LE 3,4 5 seconds without UE use ipsilateral trunk side bend noted. STG Duration 07/17/24 Detention Goal (LTG) Pt will be able to get back to walking for exercise on the [employer] or [employer] [place] . LTG Duration 08/13/24 One Impairment Pt lacks appropropriate self care HEP. Short Term Goal (STG) Pt will be started on program to work towards skiing by end jun, to include: education in different home modalities for pain management (ice, heat , elevation, nighttime splint) . STG Duration 07/17/24 Wastewater Analyst Lab Analyst Goal (LTG) Pt will be educated in a self care HEP of R ankle ROM & strengthening, and balance ex' s. LTG Duration 08/13/24 Assessment Summary Assessment Great toe 5.5 cm from wall with knee to wall PROM body over ankle DF right LE =16.6 deg SLS right LE 3,4 5 seconds without UE use ipsilateral trunk side bend noted. SLS 15 sec + without UE use post seated hip abd with band/glute med activation. Ana reports having no pain, just a sense something is there right achilles area distally ambulating out of session without device. Physical Therapy Plan Frequency and Duration Frequency of Treatment 2x/Week Duration of treatment (weeks) 8 Plan of Care Start Date 06/15/24 Plan of Care End Date 08/13/24 Next Visit Focus/Plan Next Note Type Treatment Note Next Visit Plan Plantar fasciitis rehab post cortisone injection. Next: review issued HEP.( calf stretches already reviewed) Start R ankle/toes ROM, foot long and short foot flexor & knee strengthening ( check knee ROM), gait/stair/ transfer/balance training, manual therapy (JMT-ankle/STM- plantar fascia), Pt Education (HEP, Edema and pain mgmt).x
--- NOTE | 2024-06-26 12:37 | PT.OTN ---
Current Diagnoses Plantar fascial fibromatosis (06/26/24) Physical Therapy Treatment Note PT-OP-A Visit Information Start: 06/04/24 16:12 Freq: Status: Active Protocol: Document 06/26/24 08:07 AB (Rec: 06/26/24 12:34 AB [id number]) Out-Patient Physical Therapy Visit Information Visit Information Visit Type Treatment Note Visit Start Time 08:17 Visit Stop Time 09:02 Visit Number 4 Number of LIFE SKILLS COORDINATOR Visits 2 Evaluation Information Evaluation Date 06/15/24 Precautions Precautions Hx of breast cancer, jt replacements: R shoulder & hip . Cortisone injection in medial R heel - 06/10/24, R ankle sprain pre-covid. PT-OP-B Current Condition Start: 06/04/24 16:12 Freq: Status: Active Protocol: Document 06/15/24 07:33 LRN (Rec: 06/15/24 08:51 LRN [id number]) Current Condition History of Current Condition Onset Date 1 month ago Current Complaints Hasn't returned to walking since cortisone shot, medial R heel irritation History of Current Condition Pt reports in mid April 2024, R foot started bothering her. After walking on heeled shoe after 6 hrs the heel and top of foot starting hurting. She did her normal walk back from doing the [employer] trail and barely walk afterwards. Hasn't been walking. Now able to walk 45' to shop (after cortisone injection). Was told with the R AIME one leg was longer but corrected it. Prior Treatments and Tests Cortisone injection last sat. Developmental History Developmental History Moved to [place] 2 yrs ago. 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 PMH: R TSA (ball & angela) 2011, L mastectomy (2017), R breast reduction and L reconstruction 2018, carpal tunnel, Treatment Goals Patient/Caregiver Goals Pt goal Get back to walking for exercise ([employer] and [employer]). WAnts to go skiing in end of Jun. 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 PT-OP-C Subjective Start: 06/04/24 16:12 Freq: Status: Active Protocol: Document 06/26/24 08:07 AB (Rec: 06/26/24 12:34 AB [id number]) OP-PT Subjective Patient Comments Patient Comments Patient reports ambulating 35- 40 min with no increased pain, but could feel the area the rest of the day. Unable to perform a full Heel raise with UE support with no reports of increased pain. L Knee 2 deg hyper extension at rest to 132 flexion AROM R knee rests at 0 to 132 deg flexion PT-OP-G Mobility & Gait Start: 06/04/24 16:12 Freq: Status: Active Protocol: Document 06/15/24 07:33 LRN (Rec: 06/15/24 08:51 LRN [id number]) OP Gait Assessment Gait Gait Assistance Required: Independent Comments Gait Comments Heavy landing on L side, flat foot on toe off. PT-OP-H Neuro Start: 06/04/24 16:12 Freq: Status: Active Protocol: Document 06/15/24 07:33 LRN (Rec: 06/15/24 08:51 LRN [id number]) Sensation Evaluation Gross Sensation Gross Sensation WNL PT-OP-J Posture/Palpation/Skin Start: 06/04/24 16:12 Freq: Status: Active Protocol: Document 06/15/24 07:33 LRN (Rec: 06/15/24 08:51 LRN [id number]) Posture Evaluation Position Standing Hip Posture (L) Externally Rotated,(R) Externally Rotated Knee Posture (L) Genu Valgus Foot Arch (R) Medium Arch,(L) No Arch Comments Posture Comments Head shifted R, Bunion R. Dowagers hump, flat Low back, very mild C-curvew/apex on L1- ,L2. Mild valgus R heel, mod valgus L heel. Palpation Assessment Location R foot Palpation Location Talocalcanealnavicular, cuneonavicular jt Palpation Details Dec'd mob: Talocalcanealnavicular- anterior and cuneonavicular - PA. EV of calcaneous. PT-OP-K Range of Motion Start: 06/04/24 16:12 Freq: Status: Active Protocol: Document 06/26/24 08:07 AB (Rec: 06/26/24 12:37 AB [id number]) Knee Goniometric Range of Motion Knee right knee Flexion Active (degrees) 132 Extension Passive (degrees) 0 Comments 0 deg at rest Left Flexion Active (degrees) 132 Hyper-Extension Active 2 Comments 2 deg hyperextension at rest PT-OP-M Strength Start: 06/04/24 16:12 Freq: Status: Active Protocol: Document 06/15/24 07:33 LRN (Rec: 06/15/24 08:51 LRN [id number]) Knee Strength Knee Manual Muscle Testing Right Comments Strength is 5/5 Left Comments Strength is 5/5 Ankle/Foot Strength Ankle and Foot Manual Muscle Testing Right Comments Strength is 5/5 Left Comments Strength is 5/5 PT-OP-Q Treatments Start: 06/04/24 16:12 Freq: Status: Active Protocol: Document 06/26/24 08:07 AB (Rec: 06/26/24 12:34 AB [id number]) Therapeutic Exercises Sitting Exercises shortened foot/great toe abd Sitting Exercise Name also performed in standing Reps/Minutes X6 and X 4( standing ) Comments verbal and tactile cues Standing Exercises bilateral heel raise Standing Exercise Name 1. feet on floor 2. on steps Side bilateral Equipment Used HEP Reps/Minutes X10 each, Comments Verbal and visual cues for Lowering heels slowly with UE support for both Soleus stretch Standing Exercise Name On CELE Side bilateral Reps/Minutes 60 sec X 2 Gastroc stretch Standing Exercise Name on CELE Side bilateral Reps/Minutes 60 sec X 2 Manual Therapy Treatment Soft Tissue Mobilization R calf and plantar surface of foot Mobilization Type Cross-Friction,Rolling Intensity/Depth Moderate Body Position Hooklying Joint Mobilizations right ankle Joint Talocalcanealnavicular, distal tib/fb, talocrural Direction ant, ap and pa, ap Grade II Body Position Hooklying Reps/Duration X10 X 3 Taping right foot Treatment Focus discomfort Type of Tape Kinesio Tape Skin Inspection wnl Comments plantar surface of foot to calf 50% stretch I strip, I strip across achilles area of discomfort. PT-OP-T Assessment and Plan Start: 06/04/24 16:12 Freq: Status: Active Protocol: Document 06/26/24 08:07 AB (Rec: 06/26/24 12:34 AB [id number]) Physical Therapy Assessment Goals Three Impairment Decreased R ankle ROM and jt mobility Short Term Goal (STG) Pt will demonstrate normalized mobility of R Talocalcanealnavicular ( anterior mob) and cuneonavicular (PA mob), and calcaneal EV. 06/24/2024 Great toe 5.5 cm from wall with knee to wall PROM body over ankle DF right LE =16.6 deg STG Duration 07/17/24 Dry Kiln Loader Goal (LTG) Pt will demonstarted improved R ankle mobility for DF, EV, IV. LTG Duration 08/13/24 Two Impairment Decreased walking tolerance Short Term Goal (STG) Pt will be able to tolerate gait on stairs and single leg balance exer on the R foot. 06/24/2024 SLS right LE 3,4 5 seconds without UE use ipsilateral trunk side bend noted. 06/26/2024 Patient reports ambulating 35-40 min with no increased pain, but could feel the area STG Duration 07/17/24 Dry Kiln Loader Goal (LTG) Pt will be able to get back to walking for exercise on the [employer] or [employer] . LTG Duration 08/13/24 One Impairment Pt lacks appropropriate self care HEP. Short Term Goal (STG) Pt will be started on program to work towards skiing by end jun, to include: education in different home modalities for pain management (ice, heat , elevation, nighttime splint) . STG Duration 07/17/24 Dry Kiln Loader Goal (LTG) Pt will be educated in a self care HEP of R ankle ROM & strengthening, and balance ex' s. 06/26/2024 Great toe abd/ shortened foot and bilateral heel raise added to HEP LTG Duration 08/13/24 Assessment Summary Assessment Ana reports having no pain with heel raise. Good return demonstration for shortened foot visibly, but patient reports she cannot feel the arch raise. Physical Therapy Plan Frequency and Duration Frequency of Treatment 2x/Week Duration of treatment (weeks) 8 Plan of Care Start Date 06/15/24 Plan of Care End Date 08/13/24 Therapeutic Interventions Therapeutic Interventions Balance Training,Gait Training ,Home Exercise Program,Joint Mobilizations,Manual Therapy, Neuromuscular Re-education, Self-Care/Home Management,Soft Tissue Mobilization,Taping, Therapeutic Activities, Therapeutic Exercises Modalities Cold Pack/Ice Massage, Ultrasound Next Visit Focus/Plan Next Note Type Treatment Note Next Visit Plan Plantar fasciitis rehab post cortisone injection. Next: review issued HEP.( calf stretches already reviewed) Start R ankle/toes ROM, foot long flexor & knee strengthening gait/stair/ transfer/balance training, manual therapy (JMT-ankle/STM- plantar fascia), Pt Education (HEP, Edema and pain mgmt).x
--- NOTE | 2024-06-30 10:39 | PT.OTN ---
Current Diagnoses Plantar fascial fibromatosis (06/30/24) Physical Therapy Treatment Note PT-OP-A Visit Information Start: 06/04/24 16:12 Freq: Status: Active Protocol: Document 06/30/24 08:17 LRN (Rec: 06/30/24 09:03 LRN [id number]) Out-Patient Physical Therapy Visit Information Visit Information Visit Type Treatment Note Visit Start Time 08:17 Visit Stop Time 09:01 Visit Number 5 Evaluation Information Evaluation Date 06/15/24 Precautions Precautions Hx of breast cancer, jt replacements: R shoulder & hip . Cortisone injection in medial R heel - 06/10/24, R ankle sprain pre-covid. PT-OP-B Current Condition Start: 06/04/24 16:12 Freq: Status: Active Protocol: Document 06/15/24 07:33 LRN (Rec: 06/15/24 08:51 LRN [id number]) Current Condition History of Current Condition Onset Date 1 month ago Current Complaints Hasn't returned to walking since cortisone shot, medial R heel irritation History of Current Condition Pt reports in mid April 2024, R foot started bothering her. After walking on heeled shoe after 6 hrs the heel and top of foot starting hurting. She did her normal walk back from doing the [place] trail and barely walk afterwards. Hasn't been walking. Now able to walk 45' to shop (after cortisone injection). Was told with the R AIME one leg was longer but corrected it. Prior Treatments and Tests Cortisone injection last sat. Developmental History Developmental History Moved to [place] 2 yrs ago. 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 PMH: R TSA (ball & angela) 2011, L mastectomy (2017), R breast reduction and L reconstruction 2018, carpal tunnel, Treatment Goals Patient/Caregiver Goals Pt goal Get back to walking for exercise ([employer] and [employer] [place]). WAnts to go skiing in end of Jun. 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 PT-OP-C Subjective Start: 06/04/24 16:12 Freq: Status: Active Protocol: Document 06/30/24 08:17 LRN (Rec: 06/30/24 09:03 LRN [id number]) OP-PT Subjective Patient Comments Patient Comments Was able to walk 40' on [employer] trail and ok thru the day. After last session did PT, shopping and [employer] and was fine. 2 days ago was on feet (in Birkenstocks) all day and by end of day was sore ( didn't do ex's). Reports hx of R lateral ankle sprain. PT-OP-G Mobility & Gait Start: 06/04/24 16:12 Freq: Status: Active Protocol: Document 06/15/24 07:33 LRN (Rec: 06/15/24 08:51 LRN [id number]) OP Gait Assessment Gait Gait Assistance Required: Independent Comments Gait Comments Heavy landing on L side, flat foot on toe off. PT-OP-H Neuro Start: 06/04/24 16:12 Freq: Status: Active Protocol: Document 06/15/24 07:33 LRN (Rec: 06/15/24 08:51 LRN [id number]) Sensation Evaluation Gross Sensation Gross Sensation WNL PT-OP-J Posture/Palpation/Skin Start: 06/04/24 16:12 Freq: Status: Active Protocol: Document 06/15/24 07:33 LRN (Rec: 06/15/24 08:51 LRN [id number]) Posture Evaluation Position Standing Hip Posture (L) Externally Rotated,(R) Externally Rotated Knee Posture (L) Genu Valgus Foot Arch (R) Medium Arch,(L) No Arch Comments Posture Comments Head shifted R, Bunion R. Dowagers hump, flat Low back, very mild C-curvew/apex on L1- ,L2. Mild valgus R heel, mod valgus L heel. Palpation Assessment Location R foot Palpation Location Talocalcanealnavicular, cuneonavicular jt Palpation Details Dec'd mob: Talocalcanealnavicular- anterior and cuneonavicular - PA. EV of calcaneous. PT-OP-K Range of Motion Start: 06/04/24 16:12 Freq: Status: Active Protocol: Document 06/26/24 08:07 AB (Rec: 06/26/24 12:37 AB [id number]) Knee Goniometric Range of Motion Knee right knee Flexion Active (degrees) 132 Extension Passive (degrees) 0 Comments 0 deg at rest Left Flexion Active (degrees) 132 Hyper-Extension Active 2 Comments 2 deg hyperextension at rest PT-OP-M Strength Start: 06/04/24 16:12 Freq: Status: Active Protocol: Document 06/15/24 07:33 LRN (Rec: 06/15/24 08:51 LRN [id number]) Knee Strength Knee Manual Muscle Testing Right Comments Strength is 5/5 Left Comments Strength is 5/5 Ankle/Foot Strength Ankle and Foot Manual Muscle Testing Right Comments Strength is 5/5 Left Comments Strength is 5/5 PT-OP-Q Treatments Start: 06/04/24 16:12 Freq: Status: Active Protocol: Document 06/30/24 08:17 LRN (Rec: 06/30/24 09:03 LRN [id number]) Therapeutic Exercises Sitting Exercises shortened foot/great toe abd Sitting Exercise Name also performed in standing Reps/Minutes X6 and X 4( standing ) Comments verbal and tactile cues seated hip abd with band Sitting Exercise Name HEP review Resistance level 4 band latex free Reps/Minutes one min X 1 Comments verbal cues seated DF Sitting Exercise Name HEP review Side bilateral Resistance level one band Reps/Minutes X15 w/o band X15 with band Comments verbal cues Long plantar flexion Sitting Exercise Name Emerita toe flexion sit or stand Side bilateral Reps/Minutes 10 SH x 6 Comments Phys & v cuing for proper execution of ex. Standing Exercises bilateral heel raise Standing Exercise Name Conc/Ecc contractions: 1. Feet on floor, later 2) on steps. Side bilateral Equipment Used HEP review Reps/Minutes x10 Comments cued UE support for both Soleus stretch Standing Exercise Name Standing with hands on plinth Side bilateral Reps/Minutes 60 sec X 2 Comments Cuing needed for feet positioning Gastroc stretch Standing Exercise Name Standing with hands on plinth Side bilateral Reps/Minutes 60 sec X 2 Comments Cuing needed for feet positioning Manual Therapy Treatment Soft Tissue Mobilization R calf and plantar surface of foot Body Location R plantar surface of foot Mobilization Type Cross-Friction,Rolling Intensity/Depth Moderate Body Position Hooklying Joint Mobilizations R foot Joint IP jts at MTP Direction AP Grade II Body Position Hooklying Reps/Duration 3' right ankle Joint Talocalcanealnavicular, distal tib/fb, talocrural Direction ant, ap and pa, ap Grade II Body Position Hooklying Reps/Duration X10 X 3 Self-Care/Home Management Treatment Education Other Education Pt educated in self care of stopping 1/2 day and icing feet, or when having discomfort to use iced water bottle for inflammation of pain. Activities Self-Care/Home Management Activities Re-issued HEP: Heel raises/ calf raises on step & Great toe ABDuction. PT-OP-T Assessment and Plan Start: 06/04/24 16:12 Freq: Status: Active Protocol: Document 06/30/24 08:17 LRN (Rec: 06/30/24 09:03 LRN [id number]) Physical Therapy Assessment Goals Three Impairment Decreased R ankle ROM and jt mobility Short Term Goal (STG) Pt will demonstrate normalized mobility of R Talocalcanealnavicular ( anterior mob) and cuneonavicular (PA mob), and calcaneal EV. 06/24/2024 Great toe 5.5 cm from wall with knee to wall PROM body over ankle DF right LE =16.6 deg. STG Duration 07/17/24 Shelter Goal (LTG) Pt will demonstarted improved R ankle mobility for DF, EV, IV. LTG Duration 08/13/24 Two Impairment Decreased walking tolerance Short Term Goal (STG) Pt will be able to tolerate gait on stairs and single leg balance exer on the R foot. 06/24/2024 SLS right LE 3,4 5 seconds without UE use ipsilateral trunk side bend noted. 06/26/2024 Patient reports ambulating 35-40 min with no increased pain, but could feel the area STG Duration 07/17/24 Heat Treater Head Goal (LTG) Pt will be able to get back to walking for exercise on the [employer] or [employer] [place] . 06/30/24: Pt walked (for first time) [employer] with no pain all day in R foot. LTG Duration 08/13/24 progressed 06/30/24 One Impairment Pt lacks appropropriate self care HEP. Short Term Goal (STG) Pt will be started on program to work towards skiing by end of Jun, to include: education in different home modalities for pain management (ice, heat , elevation, nighttime splint) . STG Duration 07/17/24 Shelter Goal (LTG) Pt will be educated in a self care HEP of R ankle ROM & strengthening, and balance ex' s. 06/26/2024 Great toe abd/ shortened foot and bilateral heel raise added to HEP LTG Duration 08/13/24 Assessment Summary Assessment 74 yo female s/p cortisone injection in R heel with resolving plantar fasciitis after injection, s/p injection heel pain rated 4/10 with walking and discomfort with palpation in referred area for plantar fascia pain. Today she demonstrates tight pipo gastroc/soleus complex. No significant difference with K- taping noted; therefore not repeated today. Pt was instructed in removal of tape today. She is doing well with her HEP. Physical Therapy Plan Frequency and Duration Frequency of Treatment 2x/Week Duration of treatment (weeks) 8 Plan of Care Start Date 06/15/24 Plan of Care End Date 08/13/24 Next Visit Focus/Plan Next Note Type Treatment Note Next Visit Plan Plantar fasciitis rehab post cortisone injection. Next: Cont R ankle/toes ROM, foot long flexor & knee strengthening gait/stair/ transfer/balance training, manual therapy (JMT-ankle/STM- plantar fascia), Pt Education (HEP, Edema and pain mgmt).
--- NOTE | 2024-07-02 08:16 | PT.OTN ---
Current Diagnoses Plantar fascial fibromatosis (07/02/24) Physical Therapy Treatment Note PT-OP-A Visit Information Start: 06/04/24 16:12 Freq: Status: Active Protocol: Document 07/02/24 07:30 SP (Rec: 07/02/24 08:18 SP [id number]) Out-Patient Physical Therapy Visit Information Visit Information Visit Type Treatment Note Visit Start Time 07:30 Visit Stop Time 08:16 Visit Number 6 Number of EXECUTIVE CASINO HOST Visits 1 Evaluation Information Evaluation Date 06/15/24 Precautions Precautions Hx of breast cancer, jt replacements: R shoulder & hip . Cortisone injection in medial R heel - 06/10/24, R ankle sprain pre-covid. PT-OP-B Current Condition Start: 06/04/24 16:12 Freq: Status: Active Protocol: Document 06/15/24 07:33 LRN (Rec: 06/15/24 08:51 LRN [id number]) Current Condition History of Current Condition Onset Date 1 month ago Current Complaints Hasn't returned to walking since cortisone shot, medial R heel irritation History of Current Condition Pt reports in mid April 2024, R foot started bothering her. After walking on heeled shoe after 6 hrs the heel and top of foot starting hurting. She did her normal walk back from doing the [employer] trail and barely walk afterwards. Hasn't been walking. Now able to walk 45' to shop (after cortisone injection). Was told with the R AIME one leg was longer but corrected it. Prior Treatments and Tests Cortisone injection last sat. Developmental History Developmental History Moved to [place] 2 yrs ago. 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 PMH: R TSA (ball & angela) 2011, L mastectomy (2017), R breast reduction and L reconstruction 2018, carpal tunnel, Treatment Goals Patient/Caregiver Goals Pt goal Get back to walking for exercise ([employer] and [employer] [place]). WAnts to go skiing in end of Jun. 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 PT-OP-C Subjective Start: 06/04/24 16:12 Freq: Status: Active Protocol: Document 07/02/24 07:30 SP (Rec: 07/02/24 08:18 SP [id number]) OP-PT Subjective Patient Comments Patient Comments Pt stated purchased [employer] and caused irritation on bunion, is having them stretched in L MTP, does same thing with her ski boot. She has been walking with [place] with good response with wider toe box and comfort through day. PT-OP-G Mobility & Gait Start: 06/04/24 16:12 Freq: Status: Active Protocol: Document 06/15/24 07:33 LRN (Rec: 06/15/24 08:51 LRN [id number]) OP Gait Assessment Gait Gait Assistance Required: Independent Comments Gait Comments Heavy landing on L side, flat foot on toe off. PT-OP-H Neuro Start: 06/04/24 16:12 Freq: Status: Active Protocol: Document 06/15/24 07:33 LRN (Rec: 06/15/24 08:51 LRN [id number]) Sensation Evaluation Gross Sensation Gross Sensation WNL PT-OP-J Posture/Palpation/Skin Start: 06/04/24 16:12 Freq: Status: Active Protocol: Document 06/15/24 07:33 LRN (Rec: 06/15/24 08:51 LRN [id number]) Posture Evaluation Position Standing Hip Posture (L) Externally Rotated,(R) Externally Rotated Knee Posture (L) Genu Valgus Foot Arch (R) Medium Arch,(L) No Arch Comments Posture Comments Head shifted R, Bunion R. Dowagers hump, flat Low back, very mild C-curvew/apex on L1- ,L2. Mild valgus R heel, mod valgus L heel. Palpation Assessment Location R foot Palpation Location Talocalcanealnavicular, cuneonavicular jt Palpation Details Dec'd mob: Talocalcanealnavicular- anterior and cuneonavicular - PA. EV of calcaneous. PT-OP-K Range of Motion Start: 06/04/24 16:12 Freq: Status: Active Protocol: Document 06/26/24 08:07 AB (Rec: 06/26/24 12:37 AB [id number]) Knee Goniometric Range of Motion Knee right knee Flexion Active (degrees) 132 Extension Passive (degrees) 0 Comments 0 deg at rest Left Flexion Active (degrees) 132 Hyper-Extension Active 2 Comments 2 deg hyperextension at rest PT-OP-M Strength Start: 06/04/24 16:12 Freq: Status: Active Protocol: Document 06/15/24 07:33 LRN (Rec: 06/15/24 08:51 LRN [id number]) Knee Strength Knee Manual Muscle Testing Right Comments Strength is 5/5 Left Comments Strength is 5/5 Ankle/Foot Strength Ankle and Foot Manual Muscle Testing Right Comments Strength is 5/5 Left Comments Strength is 5/5 PT-OP-Q Treatments Start: 06/04/24 16:12 Freq: Status: Active Protocol: Document 07/02/24 07:30 SP (Rec: 07/02/24 08:18 SP [id number]) Therapeutic Exercises Sitting Exercises shortened foot/great toe abd Sitting Exercise Name seated & standing Reps/Minutes 5 SH x10 and X 4 ( standing ) Comments verbal and tactile cues seated DF Sitting Exercise Name review Side bilateral Resistance Lvl 1>3 bill moore's slough green band Reps/Minutes 5 SH x15 Comments good form Long plantar flexion Sitting Exercise Name Emerita toe flexion sit or stand Side bilateral Reps/Minutes 10 SH x 6 Comments Phys & v cuing for proper execution of ex. Standing Exercises Toe & Heel walking Standing Exercise Name trialed in PT Side bilateral Reps/Minutes 10 ft x3 laps Comments good form, stated little heel awareness but not pain PF/ DF Standing Exercise Name CELE- rocking Equipment Used 1 rail support Reps/Minutes 15 reps Comments no reports pain bilateral heel raise Standing Exercise Name Conc/Ecc lowering: on steps. Side bilateral Equipment Used HEP review Reps/Minutes x10 Comments cued 1 UE support rail Soleus stretch Standing Exercise Name On CELE Side bilateral Reps/Minutes 60 sec Comments Cuing needed for feet positioning Gastroc stretch Standing Exercise Name CELE Side bilateral Reps/Minutes 60 sec X 2 Comments Cuing needed for feet positioning Manual Therapy Treatment Consent Patient gave verbal consent for manual Yes treatment Soft Tissue Mobilization R calf and plantar surface of foot Body Location R plantar surface of foot Mobilization Type Cross-Friction,Rolling Intensity/Depth Moderate Body Position Hooklying Comments base MTP & calcaneus Joint Mobilizations R foot Joint IP jts at MTP Direction AP Grade II Body Position Hooklying right ankle Joint Talocalcanealnavicular, distal tib/fb, talocrural Direction ant, ap and pa, ap Grade II Body Position Hooklying Self-Care/Home Management Treatment Education Patient Education Home Exercise Program Other Education Provided ex flow sheet to support self linear awareness of HEP performance. Per pt request. PT-OP-T Assessment and Plan Start: 06/04/24 16:12 Freq: Status: Active Protocol: Document 07/02/24 07:30 SP (Rec: 07/02/24 08:18 SP [id number]) Physical Therapy Assessment Goals Three Impairment Decreased R ankle ROM and jt mobility Short Term Goal (STG) Pt will demonstrate normalized mobility of R Talocalcanealnavicular ( anterior mob) and cuneonavicular (PA mob), and calcaneal EV. 06/24/2024 Great toe 5.5 cm from wall with knee to wall PROM body over ankle DF right LE =16.6 deg. STG Duration 07/17/24 Tongue And Groove Machine Feeder Goal (LTG) Pt will demonstarted improved R ankle mobility for DF, EV, IV. LTG Duration 08/13/24 Two Impairment Decreased walking tolerance Short Term Goal (STG) Pt will be able to tolerate gait on stairs and single leg balance exer on the R foot. 06/24/2024 SLS right LE 3,4 5 seconds without UE use ipsilateral trunk side bend noted. 06/26/2024 Patient reports ambulating 35-40 min with no increased pain, but could feel the area STG Duration 07/17/24 Skilled Nursing Goal (LTG) Pt will be able to get back to walking for exercise on the [employer] or [employer] [place] . 06/30/24: Pt walked (for first time) [employer] [place] with no pain all day in R foot. LTG Duration 08/13/24 progressed 06/30/24 One Impairment Pt lacks appropropriate self care HEP. Short Term Goal (STG) Pt will be started on program to work towards skiing by end of Jun, to include: education in different home modalities for pain management (ice, heat , elevation, nighttime splint) . STG Duration 07/17/24 Skilled Nursing Goal (LTG) Pt will be educated in a self care HEP of R ankle ROM & strengthening, and balance ex' s. 06/26/2024 Great toe abd/ shortened foot and bilateral heel raise added to HEP LTG Duration 03/20/25 Assessment Summary Assessment Pt reports improved ankle and toe mobility post manual. Cues as needed during ther ex, improved corrections. Reports just little discomfort under heel during trial heel walking , good response to stretching. Physical Therapy Plan Frequency and Duration Frequency of Treatment 2x/Week Duration of treatment (weeks) 8 Plan of Care Start Date 06/15/24 Plan of Care End Date 08/13/24 Therapeutic Interventions Therapeutic Interventions Balance Training,Gait Training ,Home Exercise Program,Joint Mobilizations,Manual Therapy, Neuromuscular Re-education, Self-Care/Home Management,Soft Tissue Mobilization,Taping, Therapeutic Activities, Therapeutic Exercises Modalities Cold Pack/Ice Massage, Ultrasound Next Visit Focus/Plan Next Note Type Treatment Note Next Visit Plan Recheck heel/toe walking if tolerant to continue HEP, Next tx if can progress SLS sliders or progress balance activities. Plantar fasciitis rehab post cortisone injection. Next: progress gait/stair/ transfer/balance training, manual therapy (JMT-ankle/STM- plantar fascia), Pt Education (HEP, Edema and pain mgmt).
--- NOTE | 2024-07-07 08:16 | PT.OTN ---
Current Diagnoses Plantar fascial fibromatosis (07/07/24) Physical Therapy Treatment Note PT-OP-A Visit Information Start: 06/04/24 16:12 Freq: Status: Active Protocol: Document 07/07/24 07:33 SP (Rec: 07/07/24 08:20 SP [id number]) Out-Patient Physical Therapy Visit Information Visit Information Visit Type Treatment Note Visit Start Time 07:33 Visit Stop Time 08:16 Visit Number 7 Number of CRUSHER DRY GROUND MICA Visits 2 Evaluation Information Evaluation Date 06/15/24 Precautions Precautions Hx of breast cancer, jt replacements: R shoulder & hip . Cortisone injection in medial R heel - 06/10/24, R ankle sprain pre-covid. PT-OP-B Current Condition Start: 06/04/24 16:12 Freq: Status: Active Protocol: Document 06/15/24 07:33 LRN (Rec: 06/15/24 08:51 LRN [id number]) Current Condition History of Current Condition Onset Date 1 month ago Current Complaints Hasn't returned to walking since cortisone shot, medial R heel irritation History of Current Condition Pt reports in mid April 2024, R foot started bothering her. After walking on heeled shoe after 6 hrs the heel and top of foot starting hurting. She did her normal walk back from doing the [employer] trail and barely walk afterwards. Hasn't been walking. Now able to walk 45' to shop (after cortisone injection). Was told with the R AIME one leg was longer but corrected it. Prior Treatments and Tests Cortisone injection last sat. Developmental History Developmental History Moved to [place] 2 yrs ago. 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 PMH: R TSA (ball & angela) 2011, L mastectomy (2017), R breast reduction and L reconstruction 2018, carpal tunnel, Treatment Goals Patient/Caregiver Goals Pt goal Get back to walking for exercise ([employer] and [employer]). WAnts to go skiing in end of Jun. 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 PT-OP-C Subjective Start: 06/04/24 16:12 Freq: Status: Active Protocol: Document 07/07/24 07:33 SP (Rec: 07/07/24 08:20 SP [id number]) OP-PT Subjective Patient Comments Patient Comments Pt reports was able to walk 40 min on trails and no pain. On feet all day and did fine. PT-OP-G Mobility & Gait Start: 06/04/24 16:12 Freq: Status: Active Protocol: Document 06/15/24 07:33 LRN (Rec: 06/15/24 08:51 LRN [id number]) OP Gait Assessment Gait Gait Assistance Required: Independent Comments Gait Comments Heavy landing on L side, flat foot on toe off. PT-OP-H Neuro Start: 06/04/24 16:12 Freq: Status: Active Protocol: Document 06/15/24 07:33 LRN (Rec: 06/15/24 08:51 LRN [id number]) Sensation Evaluation Gross Sensation Gross Sensation WNL PT-OP-J Posture/Palpation/Skin Start: 06/04/24 16:12 Freq: Status: Active Protocol: Document 06/15/24 07:33 LRN (Rec: 06/15/24 08:51 LRN [id number]) Posture Evaluation Position Standing Hip Posture (L) Externally Rotated,(R) Externally Rotated Knee Posture (L) Genu Valgus Foot Arch (R) Medium Arch,(L) No Arch Comments Posture Comments Head shifted R, Bunion R. Dowagers hump, flat Low back, very mild C-curvew/apex on L1- ,L2. Mild valgus R heel, mod valgus L heel. Palpation Assessment Location R foot Palpation Location Talocalcanealnavicular, cuneonavicular jt Palpation Details Dec'd mob: Talocalcanealnavicular- anterior and cuneonavicular - PA. EV of calcaneous. PT-OP-K Range of Motion Start: 06/04/24 16:12 Freq: Status: Active Protocol: Document 06/26/24 08:07 AB (Rec: 06/26/24 12:37 AB [id number]) Knee Goniometric Range of Motion Knee right knee Flexion Active (degrees) 132 Extension Passive (degrees) 0 Comments 0 deg at rest Left Flexion Active (degrees) 132 Hyper-Extension Active 2 Comments 2 deg hyperextension at rest PT-OP-M Strength Start: 06/04/24 16:12 Freq: Status: Active Protocol: Document 06/15/24 07:33 LRN (Rec: 06/15/24 08:51 LRN [id number]) Knee Strength Knee Manual Muscle Testing Right Comments Strength is 5/5 Left Comments Strength is 5/5 Ankle/Foot Strength Ankle and Foot Manual Muscle Testing Right Comments Strength is 5/5 Left Comments Strength is 5/5 PT-OP-Q Treatments Start: 06/04/24 16:12 Freq: Status: Active Protocol: Document 07/07/24 07:33 SP (Rec: 07/07/24 08:20 SP [id number]) Therapeutic Exercises Standing Exercises SL Standing Exercise Name sliders- added to HEP Side bilateral Reps/Minutes 3 reps x2 sets (2/10, 3/9, 4/8 , 6 o'clock) Comments cued reaching LE while providing SLS time Toe & Heel walking Standing Exercise Name reassessed Side bilateral Reps/Minutes 10 ft x3 laps Comments no pain today bilateral heel raise Standing Exercise Name Conc/Ecc lowering: on steps. Side bilateral Equipment Used HEP review Reps/Minutes x10 Comments cued 1 UE support rail Manual Therapy Treatment Consent Patient gave verbal consent for manual Yes treatment Soft Tissue Mobilization R calf and plantar surface of foot Body Location R plantar surface of foot Mobilization Type Cross-Friction,Rolling Intensity/Depth Moderate Body Position Hooklying Comments base MTP & calcaneus Joint Mobilizations R foot Joint IP jts at MTP Direction AP Grade II Body Position Hooklying right ankle Joint Talocalcanealnavicular, distal tib/fb, talocrural Direction ant, ap and pa, ap Grade II Body Position Hooklying Neuro Re-Education Treatment Balance Activities Shuttle balance Details Assimulation skiing trial Surface red chains Equipment gait belt Comments WBOS and Stride stance F/B feet on 4s: HTs no UE support Lateral: wt shift, stationary HTs CGA SLS Details added to HEP /c HO Comments L 8, 12 sec R 8, 9 sec PT-OP-T Assessment and Plan Start: 06/04/24 16:12 Freq: Status: Active Protocol: Document 07/07/24 07:33 SP (Rec: 07/07/24 08:20 SP [id number]) Physical Therapy Assessment Goals Three Impairment Decreased R ankle ROM and jt mobility Short Term Goal (STG) Pt will demonstrate normalized mobility of R Talocalcanealnavicular ( anterior mob) and cuneonavicular (PA mob), and calcaneal EV. 06/24/2024 Great toe 5.5 cm from wall with knee to wall PROM body over ankle DF right LE =16.6 deg. STG Duration 07/17/24 Skilled Nursing Goal (LTG) Pt will demonstarted improved R ankle mobility for DF, EV, IV. 07/07/24: GOAL MET: good form no pain and good mob walking no pain LTG Duration 08/13/24 GOAL MET 07/07/24 Two Impairment Decreased walking tolerance Short Term Goal (STG) Pt will be able to tolerate gait on stairs and single leg balance exer on the R foot. 06/24/2024 SLS right LE 3,4 5 seconds without UE use ipsilateral trunk side bend noted. 06/26/2024 Patient reports ambulating 35-40 min with no increased pain, but could feel the area 07/07/24: GOAL MET: L 8, 12 sec R 8, 9 sec, no pain heel and toe walking, SL sliders just little off ball, and no pain wiht stairs. STG Duration 07/17/24 GOAL MET 07/07/24 New Vehicle Sales Consultant Goal (LTG) Pt will be able to get back to walking for exercise on the [employer] or [place] . 06/30/24: Pt walked (for first time) [employer] [place] with no pain all day in R foot. 07/07/24: MET GOAL: Walking [place] 40 min pavement and uneven trail no pain LTG Duration 08/13/24 MET GOAL 07/07/24 One Impairment Pt lacks appropropriate self care HEP. Short Term Goal (STG) Pt will be started on program to work towards skiing by end of Jun, to include: education in different home modalities for pain management (ice, heat , elevation, nighttime splint) . 07/07/24: she is not needing ankle splint or modalities for pain support. Added SLS and SL sliders to HEP for arch and ankle strength stability progression. STG Duration 07/17/24 progression 07/07/24 Skilled Nursing Goal (LTG) Pt will be educated in a self care HEP of R ankle ROM & strengthening, and balance ex' s. 06/26/2024 Great toe abd/ shortened foot and bilateral heel raise added to HEP 07/07/24: added SLS and SL sliders to HEP LTG Duration 08/13/24 progression 07/07/24 Assessment Summary Assessment Pt good response to manual, was able to progress heel and toe walking with no reports of pain in heel, is walking uneven surfaces near [employer] with friends with no foot pain. Progressed SL clock phase sliders and trialed shuttle balane for hip and ankle strengthening for return to skiing has a trip coming up end Jun. She only reported muscle tiring and balance not as good as it has been in past . Pt will talk to PT and see if can wait til after ski trip to [place] to see if skiing flares up her foot again. Physical Therapy Plan Frequency and Duration Frequency of Treatment 2x/Week Duration of treatment (weeks) 8 Plan of Care Start Date 06/15/24 Plan of Care End Date 08/13/24 Therapeutic Interventions Therapeutic Interventions Balance Training,Gait Training ,Home Exercise Program,Joint Mobilizations,Manual Therapy, Neuromuscular Re-education, Self-Care/Home Management,Soft Tissue Mobilization,Taping, Therapeutic Activities, Therapeutic Exercises Modalities Cold Pack/Ice Massage, Ultrasound Next Visit Focus/Plan Next Note Type Treatment Note Next Visit Plan Recheck HEP, decide if keeping more appts, leave Mar appt after ski trip response? Plantar fasciitis rehab post cortisone injection. Next: double check gait fine/ stairs fine/balance training progression, manual therapy ( JMT-ankle/STM-plantar fascia) as needed.
--- NOTE | 2024-07-09 15:51 | PT.OTN ---
Current Diagnoses Plantar fascial fibromatosis (07/09/24) Physical Therapy Treatment Note PT-OP-A Visit Information Start: 06/04/24 16:12 Freq: Status: Active Protocol: Document 07/09/24 08:17 LRN (Rec: 07/09/24 09:03 LRN [id number]) Out-Patient Physical Therapy Visit Information Visit Information Visit Type Treatment Note Visit Start Time 08:17 Visit Stop Time 09:00 Visit Number 8 Evaluation Information Evaluation Date 06/15/24 Precautions Precautions Hx of breast cancer, jt replacements: R shoulder & hip . Cortisone injection in medial R heel - 06/10/24, R ankle sprain pre-covid. PT-OP-B Current Condition Start: 06/04/24 16:12 Freq: Status: Active Protocol: Document 06/15/24 07:33 LRN (Rec: 06/15/24 08:51 LRN [id number]) Current Condition History of Current Condition Onset Date 1 month ago Current Complaints Hasn't returned to walking since cortisone shot, medial R heel irritation History of Current Condition Pt reports in mid April 2024, R foot started bothering her. After walking on heeled shoe after 6 hrs the heel and top of foot starting hurting. She did her normal walk back from doing the [employer] trail and barely walk afterwards. Hasn't been walking. Now able to walk 45' to shop (after cortisone injection). Was told with the R AIME one leg was longer but corrected it. Prior Treatments and Tests Cortisone injection last sat. Developmental History Developmental History Moved to [place] 2 yrs ago. 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 PMH: R TSA (ball & angela) 2011, L mastectomy (2017), R breast reduction and L reconstruction 2018, carpal tunnel, Treatment Goals Patient/Caregiver Goals Pt goal Get back to walking for exercise ([employer] and [employer] [place]). WAnts to go skiing in end of Jun. 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 PT-OP-C Subjective Start: 06/04/24 16:12 Freq: Status: Active Protocol: Document 07/09/24 08:17 LRN (Rec: 07/09/24 09:03 LRN [id number]) OP-PT Subjective Patient Comments Patient Comments No pain. Skiing 07/22/24. Would like to return after skiing for treatment and possible discharge if all goes well. PT-OP-G Mobility & Gait Start: 06/04/24 16:12 Freq: Status: Active Protocol: Document 06/15/24 07:33 LRN (Rec: 06/15/24 08:51 LRN [id number]) OP Gait Assessment Gait Gait Assistance Required: Independent Comments Gait Comments Heavy landing on L side, flat foot on toe off. PT-OP-H Neuro Start: 06/04/24 16:12 Freq: Status: Active Protocol: Document 06/15/24 07:33 LRN (Rec: 06/15/24 08:51 LRN [id number]) Sensation Evaluation Gross Sensation Gross Sensation WNL PT-OP-J Posture/Palpation/Skin Start: 06/04/24 16:12 Freq: Status: Active Protocol: Document 06/15/24 07:33 LRN (Rec: 06/15/24 08:51 LRN [id number]) Posture Evaluation Position Standing Hip Posture (L) Externally Rotated,(R) Externally Rotated Knee Posture (L) Genu Valgus Foot Arch (R) Medium Arch,(L) No Arch Comments Posture Comments Head shifted R, Bunion R. Dowagers hump, flat Low back, very mild C-curvew/apex on L1- ,L2. Mild valgus R heel, mod valgus L heel. Palpation Assessment Location R foot Palpation Location Talocalcanealnavicular, cuneonavicular jt Palpation Details Dec'd mob: Talocalcanealnavicular- anterior and cuneonavicular - PA. EV of calcaneous. PT-OP-K Range of Motion Start: 06/04/24 16:12 Freq: Status: Active Protocol: Document 06/26/24 08:07 AB (Rec: 06/26/24 12:37 AB [id number]) Knee Goniometric Range of Motion Knee right knee Flexion Active (degrees) 132 Extension Passive (degrees) 0 Comments 0 deg at rest Left Flexion Active (degrees) 132 Hyper-Extension Active 2 Comments 2 deg hyperextension at rest PT-OP-M Strength Start: 06/04/24 16:12 Freq: Status: Active Protocol: Document 06/15/24 07:33 LRN (Rec: 06/15/24 08:51 LRN [id number]) Knee Strength Knee Manual Muscle Testing Right Comments Strength is 5/5 Left Comments Strength is 5/5 Ankle/Foot Strength Ankle and Foot Manual Muscle Testing Right Comments Strength is 5/5 Left Comments Strength is 5/5 PT-OP-Q Treatments Start: 06/04/24 16:12 Freq: Status: Active Protocol: Document 07/09/24 08:17 LRN (Rec: 07/09/24 09:03 LRN [id number]) Gym Equipment Cable Column (Body Solid) Leg Extension Details Chair: 4 holes showing Resistance 10# Reps/Time 8x 3 Leg Curl Details Chair: 4 holes showing Resistance 30# Reps/Time 8x 3 Shuttle Recovery Bilateral Heel Raises Details Stable - heels off the platform - after much mods, pt not able. Resistance 50 Shuttle Recovery Platform Stable Reps/Time 2' Bilateral Squats Resistance 75 Shuttle Recovery Platform Stable,Unstable Reps/Time 10x 2 Therapeutic Exercises Standing Exercises Fitter Standing Exercise Name 3 bands, then 2 bands after gastrocsoleus stretch. Reps/Minutes 1' x 2 (gastroc stretching between sets) SL Standing Exercise Name sliders- added to HEP Side bilateral Reps/Minutes 3 reps x2 sets on same side at a time (07/06, 3/9, 4/8, 6 o' clock) Comments cued reaching LE while providing SLS time bilateral heel raise Standing Exercise Name Conc/Ecc lowering: on steps. Side bilateral Equipment Used (HEP) Reps/Minutes x10 Comments cued 1 UE support rail Soleus stretch Standing Exercise Name Bent knee Runner's stretch Side bilateral Reps/Minutes 30 sec x 1, immediately after Gastroc stretch Comments Cuing needed for feet positioning Gastroc stretch Standing Exercise Name Runner's Stretch Side bilateral Reps/Minutes 30 sec X 1 Comments Cuing needed for feet positioning Manual Therapy Treatment Joint Mobilizations right ankle Joint Talocalcanealnavicular, distal tib/fb, talocrural Direction ant, ap and pa, pa Grade II Body Position Hooklying Reps/Duration lat PT-OP-T Assessment and Plan Start: 06/04/24 16:12 Freq: Status: Active Protocol: Document 07/09/24 08:17 LRN (Rec: 07/09/24 09:03 LRN [id number]) Physical Therapy Assessment Goals Three Impairment Decreased R ankle ROM and jt mobility Short Term Goal (STG) Pt will demonstrate normalized mobility of R Talocalcanealnavicular ( anterior mob) and cuneonavicular (PA mob), and calcaneal EV. 06/24/2024 Great toe 5.5 cm from wall with knee to wall PROM body over ankle DF right LE =16.6 deg. STG Duration 07/17/24 Halfway Goal (LTG) Pt will demonstarted improved R ankle mobility for DF, EV, IV. 07/07/24: GOAL MET: good form no pain and good mob walking no pain LTG Duration 08/13/24 GOAL MET 07/07/24 One Impairment Pt lacks appropropriate self care HEP. Short Term Goal (STG) Pt will be started on program to work towards skiing by end jun, to include: education in different home modalities for pain management (ice, heat , elevation, nighttime splint) . 07/07/24: she is not needing ankle splint or modalities for pain support. Added SLS and SL sliders to HEP for arch and ankle strength stability progression. 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 06/26/2024 Great toe abd/ shortened foot and bilateral heel raise added to HEP 07/07/24: added SLS and SL sliders to HEP LTG Duration 08/13/24 progression 07/07/24 Assessment Summary Assessment 74 yo female s/p cortisone injection in R heel with resolving plantar fasciitis after injection with R heel pain rated 4/10 with walking and discomfort with palpation in referred area for plantar fascia pain. Today she presents with no R heel pain for the past 2 weeks. She had no c/o pain with added standing ankle/knee ex's. She is planning on going on a ski trip in 2 weeks; therefore further therapy to prepare the pt for ski activities w/o onset of R foot plantar fascia /heel pain. Physical Therapy Plan Frequency and Duration Frequency of Treatment 2x/Week Duration of treatment (weeks) 8 Plan of Care Start Date 06/15/24 Plan of Care End Date 08/13/24 Next Visit Focus/Plan Next Note Type Treatment Note Next Visit Plan Plantar fasciitis rehab post cortisone injection in R heel 06/10/24. Next: Educate in RICE self care; recheck HEP, double check gait fine/stairs fine/ balance training progression. Progress towards tolerance for skiing. Ski Return: leave Mar appt after ski trip for review and DC to [facility] if having no pain. Cont manual therapy (JMT-ankle /STM-plantar fascia) as needed .
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
--- NOTE | 2024-07-28 18:59 | PT.OTN ---
Current Diagnoses Plantar fascial fibromatosis (07/28/24) Physical Therapy Treatment Note PT-OP-A Visit Information Start: 06/04/24 16:12 Freq: Status: Active Protocol: Document 07/28/24 07:31 LRN (Rec: 07/28/24 08:16 LRN [id number]) Out-Patient Physical Therapy Visit Information Visit Information Visit Type Discharge Summary Visit Start Time 07:31 Visit Stop Time 08:09 Visit Number 11 Evaluation Information Evaluation Date 06/15/24 Precautions Precautions Hx of breast cancer, jt replacements: R shoulder & hip . Cortisone injection in medial R heel - 06/10/24, R ankle sprain pre-covid. PT-OP-B Current Condition Start: 06/04/24 16:12 Freq: Status: Active Protocol: Document 06/15/24 07:33 LRN (Rec: 06/15/24 08:51 LRN [id number]) Current Condition History of Current Condition Onset Date 1 month ago Current Complaints Hasn't returned to walking since cortisone shot, medial R heel irritation History of Current Condition Pt reports in mid April 2024, R foot started bothering her. After walking on heeled shoe after 6 hrs the heel and top of foot starting hurting. She did her normal walk back from doing the [employer] trail and barely walk afterwards. Hasn't been walking. Now able to walk 45' to shop (after cortisone injection). Was told with the R AIME one leg was longer but corrected it. Prior Treatments and Tests Cortisone injection last sat. Developmental History Developmental History Moved to [place] 2 yrs ago. 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 PMH: R TSA ([facility] & angela) 2011, L mastectomy (2017), R breast reduction and L reconstruction 2018, carpal tunnel, Treatment Goals Patient/Caregiver Goals Pt goal Get back to walking for exercise ([employer] and [employer]). WAnts to go skiing in end of Jun. 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 PT-OP-C Subjective Start: 06/04/24 16:12 Freq: Status: Active Protocol: Document 07/28/24 07:31 LRN (Rec: 07/28/24 08:16 LRN [id number]) OP-PT Subjective Patient Comments Patient Comments No issues with heel. Skiing was cruising. Back to walking regular course, no foot pain. Patient Questionnaires Lower Extremity Functional Scale LEFS Score 80 LEFS Impairment 0% Impaired (Score 80) PT-OP-G Mobility & Gait Start: 06/04/24 16:12 Freq: Status: Active Protocol: Document 06/15/24 07:33 LRN (Rec: 06/15/24 08:51 LRN [id number]) OP Gait Assessment Gait Gait Assistance Required: Independent Comments Gait Comments Heavy landing on L side, flat foot on toe off. PT-OP-H Neuro Start: 06/04/24 16:12 Freq: Status: Active Protocol: Document 06/15/24 07:33 LRN (Rec: 06/15/24 08:51 LRN [id number]) Sensation Evaluation Gross Sensation Gross Sensation WNL PT-OP-J Posture/Palpation/Skin Start: 06/04/24 16:12 Freq: Status: Active Protocol: Document 06/15/24 07:33 LRN (Rec: 06/15/24 08:51 LRN [id number]) Posture Evaluation Position Standing Hip Posture (L) Externally Rotated,(R) Externally Rotated Knee Posture (L) Genu Valgus Foot Arch (R) Medium Arch,(L) No Arch Comments Posture Comments Head shifted R, Bunion R. Dowagers hump, flat Low back, very mild C-curvew/apex on L1- ,L2. Mild valgus R heel, mod valgus L heel. Palpation Assessment Location R foot Palpation Location Talocalcanealnavicular, cuneonavicular jt Palpation Details Dec'd mob: Talocalcanealnavicular- anterior and cuneonavicular - PA. EV of calcaneous. PT-OP-K Range of Motion Start: 06/04/24 16:12 Freq: Status: Active Protocol: Document 07/28/24 07:31 LRN (Rec: 07/28/24 08:16 LRN [id number]) Ankle and Foot Goniometric Range of Motion Ankle and Foot Right Active Testing Position Supine Dorsiflexion with Knee Extended 12 Plantarflexion 60 Inversion 45 Eversion 10 Left Active Testing Position Supine Dorsiflexion with Knee Extended 7 Plantarflexion 66 Inversion 44 Eversion 10 PT-OP-M Strength Start: 06/04/24 16:12 Freq: Status: Active Protocol: Document 06/15/24 07:33 LRN (Rec: 06/15/24 08:51 LRN [id number]) Knee Strength Knee Manual Muscle Testing Right Comments Strength is 5/5 Left Comments Strength is 5/5 Ankle/Foot Strength Ankle and Foot Manual Muscle Testing Right Comments Strength is 5/5 Left Comments Strength is 5/5 PT-OP-Q Treatments Start: 06/04/24 16:12 Freq: Status: Active Protocol: Document 07/28/24 07:31 LRN (Rec: 07/28/24 08:16 LRN [id number]) Gym Equipment Shuttle Recovery Bilateral Heel Raises Details Stable - heels off the platform - after much mods, pt not able. Resistance 50 Shuttle Recovery Platform Stable Reps/Time fast 20x, cued pt to move slowly 10x Bilateral Squats Resistance 75 3 navy bands Shuttle Recovery Platform Stable,Unstable Reps/Time 20 firm, 10x unstable Therapeutic Exercises Supine Exercises Ankle AROM Supine Exercise Name ANkle DF/PF/EV/IV Side bilateral Reps/Minutes 24' Comments also ROM taken Standing Exercises Soleus stretch Standing Exercise Name Bent knee Runner's stretch Side bilateral Reps/Minutes 30 sec x 1, immediately after Gastroc stretch Comments Cuing needed for feet positioning Gastroc stretch Standing Exercise Name Runner's Stretch Side bilateral Reps/Minutes 30 sec X 1 Comments Cuing needed for feet positioning Self-Care/Home Management Treatment Activities Self-Care/Home Management Activities Discussed & I/S pt in self care of ex every other day for maintenance of her condition. PT-OP-T Assessment and Plan Start: 06/04/24 16:12 Freq: Status: Active Protocol: Document 07/28/24 07:31 LRN (Rec: 07/28/24 08:16 LRN [id number]) Physical Therapy Assessment Goals Three Impairment Decreased R ankle ROM and jt mobility Short Term Goal (STG) Pt will demonstrate normalized mobility of R Talocalcanealnavicular ( anterior mob) and cuneonavicular (PA mob), and calcaneal EV. 06/24/2024 Great toe 5.5 cm from wall with knee to wall PROM body over ankle DF right LE =16.6 deg. 07/28/24: Great toe 8 cm from wall with knee to wall PROM body over ankle DF right LE = 24 deg's = WNL STG Duration 07/17/24 (07/28/24: MET GOAL) Nursing Home Goal (LTG) Pt will demonstarted improved R ankle mobility for DF, EV, IV. 07/07/24: GOAL MET: good form no pain and good mob walking no pain LTG Duration 08/13/24 (GOAL MET 07/07/24) Two Impairment Decreased walking tolerance Short Term Goal (STG) Pt will be able to tolerate gait on stairs and single leg balance exer on the R foot. 06/24/2024 SLS right LE 3,4 5 seconds without UE use ipsilateral trunk side bend noted. 06/26/2024 Patient reports ambulating 35-40 min with no increased pain, but could feel the area 07/07/24: GOAL MET: L 8, 12 sec R 8, 9 sec, no pain heel and toe walking, SL sliders just little off ball, and no pain wiht stairs. 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 06/30/24: Pt walked (for first time) [employer] with no pain all day in R foot. 07/07/24: MET GOAL: Walking [employer] 40 min pavement and uneven trail no pain LTG Duration 08/13/24 (MET GOAL 07/07/24) One Impairment Pt lacks appropropriate self care HEP. Short Term Goal (STG) Pt will be started on program to work towards skiing by end jun, to include: education in different home modalities for pain management (ice, heat , elevation, nighttime splint) . 07/07/24: she is not needing ankle splint or modalities for pain support. Added SLS and SL sliders to HEP for arch and ankle strength stability progression. 07/15/24; added seated LAQ, standing HS curl, mini lunges, continued SL sliders for LE and foot/ankle strengthening return to skiing. 07/28/24: Pt returns from ski trip without pain, and return to walking program. 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 06/26/2024 Great toe abd/ shortened foot and bilateral heel raise added to HEP 07/07/24: added SLS and SL sliders to HEP 07/15/24; added seated LAQ, standing HS curl, mini lunges, continued SL sliders for LE and foot/ankle strengthening return to skiing. LTG Duration 08/13/24 (07/28/24: MET GOAL) Assessment Summary Assessment 74 yo female s/p cortisone injection in R heel with resolving plantar fasciitis after injection. R heel pain rated 4/10 with walking and discomfort with palpation at initial evaluation. Today the pt attends after a ski vacation with reports of return to prior walking function and no pain. Her R ankle ROM is WNL for stairs and walking. The pt has a self care HEP and is ready for discharge to her HEP. Physical Therapy Plan Discharge Physical Therapy Discharge Reasons Goals Met Discharge Comments Thank you for your referral.
== END 2024-07-30 10:58 | disposition home or self-care (01) ==
LOC: PHYS 07:30
PROVIDERS: Family Provider Nurse Practitioner Family; PCP Nurse Practitioner Family; Referring Provider Nurse Practitioner Family; Visit Provider Nurse Practitioner Family
DX: M72.2 Plantar fascial fibromatosis (principal)
CPT/HCPCS: 97110; 97116; 97140; 97162; 97535

== ENCOUNTER → 2024-11-02 11:29 | Outpatient (CLI) | payer MEDICARE, OTHER, SELFPAY ==
[2024-11-02 12:04] LABS: Add Manual Diff / Slide Review NO; Basophils Absolute Auto 0 /uL (0-100); Basophils Percent Auto 0.5 % (0-2); Eosinophils Absolute Auto 100 /uL (0-450); Eosinophils Percent Auto 2.8 % (2-4); Hematocrit 35.4 % (36-46); Hemoglobin 12.1 g/dL (12.0-16.0); Lymphocytes Absolute Auto 1900 /uL (1100-4500); Lymphocytes Percent Auto 40.2 % (25-40); Mean Corpuscular HGB Conc 34.3 % (30-36); Mean Corpuscular Hemoglobin 30.9 PG (26-34); Mean Corpuscular Volume 90.3 fL (80-100); Monocytes Absolute Auto 400 /uL (0-900); Monocytes Percent Auto 8.2 % (3-14); Neutrophils Absolute Auto 2300 /uL (1500-7000); Neutrophils Percent Auto 48.3 % (50-75); Platelet Count 231 X10^3/uL (150-400); Red Blood Cell Count 3.92 X10^6/uL (4.0-5.2); Red Cell Distribution Width 13.9 % (11.6-14.8); White Blood Cell Count 4.8 X10^3/uL (4.5-11.0)
[2024-11-02 12:16] LABS: Alanine Aminotransferase 21 IU/L (<35); Albumin 4.6 g/dL (3.5-5.0); Albumin Globulin Ratio 1.7 (1.0-2.8); Alkaline Phosphatase 55 U/L (38-126); Aspartate Aminotransferase 29 IU/L (14-36); BUN Creatinine Ratio 23.3 (6-22); Bilirubin Total 0.5 mg/dL (0.2-1.3); Blood Urea Nitrogen 28 mg/dL (7-17); Calcium 10.2 mg/dL (8.4-10.2); Carbon Dioxide 24 mmol/L (22-32); Chloride 103 mmol/L (98-107); Cholesterol 186 mg/dL (140-199); Estimated Glomerular Filt Rate 47 mL/min (>60); Globulin 2.7 g/dL (1.7-4.1); Glucose 92 mg/dL (70-99); HDL Cholesterol 46 mg/dL (40-60); HEMOLYSIS < 15 (0-50); LDL Cholesterol Calculated 76 mg/dL (<100); Phosphorous 4.8 mg/dL (2.8-4.1); Potassium 4.7 mmol/L (3.4-5.1); Sodium 136 mmol/L (137-145); Total Protein 7.3 g/dL (6.3-8.2); Triglycerides 318 mg/dL (35-150); Uric Acid 6.4 mg/dL (2.5-6.2)
[2024-11-02 12:17] LABS: Hemoglobin A1C% w Est Avg Glu 5.3 % (4.0-6.0)
[2024-11-02 12:33] LABS: Vitamin D 25 Hydroxy (D3) 80.1 ng/mL (30.0-100.0)
[2024-11-02 16:02] LABS: Creatinine Urine Random 39.36 mg/dL; Protein (Total) Urine Random 10 mg/dL (0-12); Protein Creatinine Ratio Urine 0.25 GRAM/24H
[2024-11-04 03:13] LABS: Parathyroid Hormone Int 34 pg/mL (15-65)
== END ==
PROVIDERS: Family Provider Nurse Practitioner Family; PCP Nurse Practitioner Family; Referring Provider Internal Medicine Nephrology; Visit Provider Internal Medicine Nephrology
DX: E55.9 Vitamin D deficiency, unspecified (principal); R73.9 Hyperglycemia, unspecified; I12.9 Hypertensive chronic kidney disease with stage 1 through stage 4 chronic kidney disease, or unspecified chronic kidney disease; N18.32 Chronic kidney disease, stage 3b; E78.5 Hyperlipidemia, unspecified
CPT/HCPCS: 36415; 80053; 80061; 82306; 82570; 83036; 83970; 84100; 84156; 84550; 85025

== ENCOUNTER → 2024-11-24 15:04 | Outpatient (CLI) | payer MEDICARE, OTHER, SELFPAY ==
--- NOTE | 2024-11-24 15:07 | DI.RAD.S_ITS ---
PROCEDURE: XR DEXA AXIAL SKELETON INDICATIONS: Osteoporosis Screening COMPARISON: None. FINDINGS: Lumbar Spine: L2-L4. Bone mineral density 1.039 g/cm2, T score -0.4. Left Femoral Neck: Bone mineral density 0.753 g/cm2, T score -0.9. Left Hip: Bone mineral density 0.891 g/cm2, T score -0.4. Fracture Risk Calculation (when applicable): 10-year fracture risk of a major osteoporotic fracture 9.3 percent and of a hip fracture 1.4 percent. (T score greater or equal to -1.0 to: NORMAL) (T score from -1.1 to -2.4: OSTEOPENIA) (T score less than or equal to -2.5: OSTEOPOROSIS) IMPRESSION: Within normal limits. Follow-up guidelines as follows: Osteoporosis: Consider a repeat DEXA and Vertebral Fracture Assessment (VFA) exam in 2 years or sooner if medically necessary, to reassess this patient's status. Osteopenia: Consider a repeat DEXA in 2-3 years to reassess this patient's status, or if there is a new clinical indication. Normal: Consider a repeat DEXA in 5 years or sooner, or if there is a new clinical indication. All treatment decisions require clinical judgment and consideration of individual patient factors, including patient preferences, comorbidities, previous drug use, risk factors not captured in the FRAX model (e.g., frailty, falls, vitamin D deficiency, increased bone turnover, interval significant decline in bone density ) and possible under- or over-estimation of fracture risk by FRAX. In addition, the NOF Guide recommends that FDA-approved medical therapies be considered in postmenopausal women and men age >= 50 years with a: * Hip or vertebral (clinical or morphometric) fracture * T-score of <=-2.5 at the spine or hip * Ten-year fracture probability by FRAX of >= 3% for hip fracture or >=20% for major osteoporotic fracture. Dictated by: Faisal Malloy M.D. on 11/25/2024 at 13:38 Approved by: Faisal Malloy M.D. on 11/25/2024 at 13:40
== END ==
PROVIDERS: Family Provider Nurse Practitioner Family; PCP Nurse Practitioner Family; Referring Provider Nurse Practitioner Family; Visit Provider Internal Medicine Hematology & Oncology
DX: C50.412 Malignant neoplasm of upper-outer quadrant of left female breast (principal); M85.852 Other specified disorders of bone density and structure, left thigh; Z17.0 Estrogen receptor positive status [ER+]; Z79.899 Other long term (current) drug therapy
CPT/HCPCS: 77080

== ENCOUNTER → 2024-12-08 09:29 | Outpatient (CLI) | payer MEDICARE, OTHER, SELFPAY | PROVIDERS: Family Provider Nurse Practitioner Family; PCP Nurse Practitioner Family; Visit Provider Chiropractor | DX: N89.8 Other specified noninflammatory disorders of vagina (principal); R30.0 Dysuria | CPT/HCPCS: 81002; 87086; 87210 ==

== ENCOUNTER → 2025-04-13 10:47 | Outpatient (CLI) | payer MEDICARE, OTHER, SELFPAY ==
--- NOTE | 2025-04-13 10:49 | DI.RAD.S_ITS ---
PROCEDURE: XR HIP W PEL IF DONE LT 2V INDICATIONS: L hip pain; suspect osteoarthritis TECHNIQUE: AP pelvis with lateral view(s) of the left hip(s). COMPARISON: None. FINDINGS: Bones: [id number] hip joint space narrowing with subchondral sclerosis, early flattening of the femoral head, lateral osteophyte, and acetabular impingement. No fractures or dislocations. Pelvic ring appears intact. No suspicious bony lesions. History of right hip arthroplasty, no evidence of hardware complication. Soft tissues: The visualized bowel gas pattern is normal with moderate colonic stool. No suspicious soft tissue calcifications. IMPRESSION: Moderate left hip DJD. Right hip arthroplasty with no evidence of hardware complication. Dictated by: Karla MCCARTHY Interpreted: Faisal Malloy MD on 04/13/2025 at 14:57 Transcribed by: TRAVIS on 04/13/2025 at 15:00 Approved by: Faisal Malloy M.D. on 04/13/2025 at 17:15
--- NOTE | 2025-04-13 10:49 | DI.RAD.S_ITS ---
PROCEDURE: XR KNEE LT 3V INDICATIONS: L knee pain; suspect osteoarthritis TECHNIQUE: 3 views of the knee were acquired. COMPARISON: None. FINDINGS: Bones: Mild medial joint space narrowing. No fractures or dislocations. No suspicious bony lesions. No osseous erosion is identified. Soft tissues: Moderate joint effusion. Trace vascular calcification. No suspicious soft tissue calcifications. IMPRESSION: Mild degenerative changes to the medial compartment. Left knee joint effusion is present. If clinically indicated consider MRI for further evaluation. Dictated by: Karla MCCARTHY Interpreted: Faisal Malloy MD on 04/13/2025 at 14:56 Transcribed by: TRAVIS on 04/13/2025 at 14:57 Approved by: Faisal Malloy M.D. on 04/13/2025 at 17:14
== END ==
PROVIDERS: Family Provider Nurse Practitioner Family; PCP Nurse Practitioner Family; Referring Provider Physician Assistant; Visit Provider Physician Assistant
DX: M25.562 Pain in left knee (principal); M25.552 Pain in left hip; M16.12 Unilateral primary osteoarthritis, left hip; Z96.641 Presence of right artificial hip joint
CPT/HCPCS: 73502; 73562

== ENCOUNTER → 2025-05-05 07:39 | Outpatient (CLI) | payer MEDICARE, OTHER, SELFPAY ==
[2025-05-05 08:19] LABS: Add Manual Diff / Slide Review NO; Hematocrit 36.6 % (36-46); Hemoglobin 12.4 g/dL (12.0-16.0); Lymphocytes Absolute Auto 2100 /uL (1100-4500); Mean Corpuscular HGB Conc 33.9 % (30-36); Mean Corpuscular Hemoglobin 29.8 PG (26-34); Mean Corpuscular Volume 87.9 fL (80-100); Platelet Count 233 X10^3/uL (150-400)
[2025-05-05 08:36] LABS: Hemoglobin A1C% w Est Avg Glu 5.6 % (4.0-6.0)
[2025-05-05 08:38] LABS: Alanine Aminotransferase 18 IU/L (<35); Albumin 4.7 g/dL (3.5-5.0); Albumin Globulin Ratio 1.9 (1.0-2.8); Alkaline Phosphatase 47 U/L (38-126); Blood Urea Nitrogen 25 mg/dL (7-17); Calcium 9.6 mg/dL (8.4-10.2); Carbon Dioxide 25 mmol/L (22-32); Chloride 97 mmol/L (98-107); Cholesterol 177 mg/dL (140-199); Estimated Glomerular Filt Rate 48 mL/min (>60); Globulin 2.5 g/dL (1.7-4.1); Glucose 97 mg/dL (70-99); HDL Cholesterol 66 mg/dL (40-60); HEMOLYSIS < 15 (0-50); Phosphorous 3.5 mg/dL (2.8-4.1); Potassium 4.4 mmol/L (3.4-5.1); Sodium 133 mmol/L (137-145); Total Protein 7.2 g/dL (6.3-8.2); Triglycerides 136 mg/dL (35-150); Uric Acid 5.6 mg/dL (2.5-6.2)
[2025-05-05 09:01] LABS: Vitamin D 25 Hydroxy (D3) 102 ng/mL (30.0-100.0)
[2025-05-05 17:40] LABS: Protein (Total) Urine Random 12 mg/dL (0-12); Protein Creatinine Ratio Urine 0.34 GRAM/24H
== END ==
PROVIDERS: Family Provider Nurse Practitioner Family; PCP Nurse Practitioner Family; Referring Provider Nurse Practitioner Family; Visit Provider Internal Medicine Nephrology
DX: Z23 Encounter for immunization (principal); E55.9 Vitamin D deficiency, unspecified; E78.5 Hyperlipidemia, unspecified; I12.9 Hypertensive chronic kidney disease with stage 1 through stage 4 chronic kidney disease, or unspecified chronic kidney disease; N18.32 Chronic kidney disease, stage 3b; R73.9 Hyperglycemia, unspecified
CPT/HCPCS: 36415; 80053; 80061; 82306; 82570; 83036; 83970; 84100; 84156; 84550; 85025